=== PATIENT | male | born 1960 | race Caucasian/White ===

== ENCOUNTER 2017-06-20 09:04 | Inpatient (IN) | payer OTHER ==
[~2017-06-20] VITALS: Ht 172.7 cm; Wt 126.1 kg
[~2017-06-20 09:04] MED LIST: ALBUAER19 INH; AMIO200T4 PO; ASPI-435 PO; CARV12.5 PO; CHOL100027 PO; FLEC100T21 PO; FURO40TA3 PO; GLC/500 PO; LISI-794 PO; LPT/40 PO; MOME200A INH; MTR800 PO; POTA20TA16 PO; RRALBUT083 INH; SPIR25TA89 PO; VARD20TA PO
[2017-06-20 11:07] VITALS: BP 174/79; PULSE 92; TEMP 36.9; Ht 172.7 cm; Wt 126.1 kg
[2017-06-20 11:14] VITALS: O2SAT 98
[2017-06-20] MEDS ORDERED: ACETAMINOPHEN 325 MG TAB PO PRN (11:15)
[2017-06-20] MEDS ORDERED: ALUMINUM/MAGNESIUM/SIMETH (MAALOX MAX) 30 ML UDC PO PRN (11:15)
[2017-06-20] MEDS ORDERED: POLYETHYLENE (MIRALAX) 17 GM PACK PO PRN (11:15)
[2017-06-20] MEDS ORDERED: NURSING VERBAL MED ORDER ONE (11:15)
[2017-06-20] MEDS ORDERED: ZOLPIDEM TARTRATE 5 MG TAB PO PRN ×2 (11:15)
[2017-06-20] MEDS ORDERED: MAGNESIUM HYDROXIDE SUSP 30 ML UDC PO PRN (11:15)
[2017-06-20] MEDS ORDERED: ONDANSETRON INJ 2 MG/ML 2 ML VIAL IV PRN (11:15)
[2017-06-20] MEDS ORDERED: SOTALOL HCL 80 MG TAB PO ONE (11:45)
[2017-06-20] MEDS ORDERED: ALBUTEROL HFA 8 GM INHALER INH PRN (11:45)
[2017-06-20 12:03] VITALS: BP 122/68; PULSE 64; TEMP 36.7; O2SAT 98
[2017-06-20 14:56] LABS: INR 1.1 (0.9-1.1); PROTHROMBIN TIME (PATIENT) 11.6 SECONDS (9.0-12.0)
[2017-06-20 15:13] LABS: BLOOD UREA NITROGEN 12 mg/dl (7-18); BUN/CREATININE RATIO 13.4 (10-20); CARBON DIOXIDE 28 mmol/L (21-32); CHLORIDE 101 mmol/L (98-107); CREATININE 0.92 mg/dl (0.60-1.40); GLUCOSE 170 mg/dl (70-99); SODIUM 138 mmol/L (136-145)
[2017-06-20 15:50] VITALS: BP 129/82; PULSE 67; TEMP 37; O2SAT 98
[2017-06-20] MEDS: METFORMIN HCL 500 MG TAB PO SCH (16:52)
--- NOTE | 2017-06-20 17:37 | HISTORY & PHYSICAL EXAMINATION ---
DATE OF ADMISSION: 06/20/2017 REASON FOR ADMISSION: Palpitations. HISTORY OF PRESENT ILLNESS: This is a 57-year-old gentleman who I recently saw in my office last week. He has a past medical history for paroxysmal atrial fibrillation; nonischemic cardiomyopathy, ejection fraction 32%, most recently in the spring was 47%; history of paroxysmal ventricular tachycardia status post 2 attempted VT ablations in [place], as per the patient, they were unsuccessful and he remains on flecainide; hypertension; hyperlipidemia; chronic systolic heart failure, [place] Heart Association class 2. I recently saw him in my office to reestablish electrophysiology care, on his link interrogation that day, he was found to have a lot of atrial fibrillation and I was suggested that maybe he should stop the flecainide and we should try sotalol, so he comes in today for sotalol initiation. PAST MEDICAL HISTORY: In addition to the cardiac history as listed above he has restless leg syndrome; obstructive sleep apnea, on CPAP; severe COPD; vitamin D deficiency; morbid obesity; GERD; hemorrhoids; osteoarthritis; history of alcohol use; and anxiety. PAST SURGICAL HISTORY: Colonoscopy, cardiac catheterization, VT ablation x2 in [place], incision of anal sphincter, arthroscopy of the left ACL and repair, T&A when he was a child, repair of an acute shoulder dislocation. ALLERGIES: No known drug allergies. FAMILY HISTORY: Positive for his father having diabetes and mother having diabetes as well as hypertension and heart problems. SOCIAL HISTORY: He never smoked. He does use alcohol, can be up to 20 beers on the weekend, right now it is 4. He is and works in the [employer]. CURRENT MEDICATIONS: Lisinopril; Aldactone; Lasix; aspirin; Lipitor; metformin; flecainide, which has been stopped now for 3 days; carvedilol; albuterol; and Dulera as needed. REVIEW OF SYSTEMS: Positive for palpitations and diarrhea. Otherwise, all other 10-point review of systems reviewed and are essentially negative at this time. PHYSICAL EXAMINATION: VITAL SIGNS: Blood pressure 130/80, heart rate 70, respirations 12. GENERAL: He is awake, alert and oriented x3, in no acute distress, sitting up in the bed comfortably. HEENT: Normocephalic, atraumatic. Extraocular motion intact. Sclerae nonicteric. Mucous membranes moist. NECK: Supple and thick. CARDIOVASCULAR: Normal S1, S2, regular rate and rhythm. No murmur appreciated. No palpable heave or thrill. Positive PVCs are noted on telemetry. Pulses are intact. No lower extremity edema. PULMONARY: Clear to auscultation bilaterally. No wheezes, rales or rhonchi. ABDOMEN: Soft. NEUROLOGIC: Grossly intact. SKIN: Grossly intact. PERTINENT TESTING: Cardiac catheterization in 2012, he had normal coronaries. The RCA was dominant and his ejection fraction at that time was 30%. A nuclear stress test in May 2016 did not show any ischemia. His ejection fraction at that time was 48%. Echocardiogram in 2013 showed mild mitral regurgitation and tricuspid regurgitation with mild chamber dilatation and sclerotic aortic valve and mitral valve, but no significant regurg or stenosis. EKGs on 05/20/2017, sinus rhythm at 62 beats per minute, PVCs; on 12/31/2015, sinus rhythm, 62 beats per minute; on 03/30/2015, sinus palma at 57 beats per minute, PVCs; on September 2012, sinus rhythm, 72 beats per minute. PERTINENT TESTING: Hemoglobin A1c in March 2017 was 7. Thyroid panel in March 2017; TSH 1.79, free T4 1.17. Lipid panel in March 2017; he was not truly fasting, triglycerides 338, HDL 38, LDL 27, total cholesterol 133. BMP in March 2017; sodium 139, potassium 4.8, chloride 99, carbon dioxide 24, BUN 16, creatinine 0.6, glucose 168, calcium 9.3. CBC: WBC 6.53, hemoglobin 13, hematocrit 38, platelets 191. IMPRESSION: 1. Paroxysmal atrial fibrillation with a CHADS-VASc score of 4 for hypertension, nonischemic cardiomyopathy, heart failure, and diabetes. 2. Nonischemic cardiomyopathy, ejection fraction 32%; but most recently in spring was 47% by nuclear. 3. Paroxysmal ventricular tachycardia status post 2 attempted VT ablations in [place], as per patient they were unsuccessful and he has been on flecainide. 4. Chronic systolic heart failure, [place] Heart Association class 2. 5. Hypertension. 6. Hyperlipidemia. 7. Severe chronic obstructive pulmonary disease. 8. Obstructive sleep apnea, on CPAP. 9. Diabetes. PLAN: Recommend starting sotalol 80 mg twice a day and we will probably have to titrate it up if we can; hopefully tomorrow, we can do at least 120, goal is probably 160. Continue to monitor on telemetry. Daily EKGs. Continue his Xarelto. Stop his aspirin and carvedilol for now. Continue his other home medications. Monitor on telemetry. TITI
[2017-06-20 19:54] VITALS: BP 122/85; PULSE 73; TEMP 36.8; O2SAT 98
[2017-06-20] MEDS: SOTALOL HCL 80 MG TAB PO SCH (20:43)
[2017-06-20] MEDS: ATORVASTATIN 20 MG TAB PO SCH (20:43)
[2017-06-20 23:37] VITALS: BP 94/62; PULSE 74; TEMP 36.7; O2SAT 96
[2017-06-21 07:24] VITALS: BP 142/86; PULSE 60; TEMP 36.8; O2SAT 97
[2017-06-21] MEDS: SOTALOL HCL 80 MG TAB PO SCH ×2 (07:45→21:32)
[2017-06-21] MEDS: LISINOPRIL 40 MG TAB PO SCH (07:45)
[2017-06-21] MEDS: METFORMIN HCL 500 MG TAB PO SCH ×2 (07:45→17:01)
[2017-06-21] MEDS: CHOLECALCIFEROL 1000 INTER.UNIT TAB PO SCH (07:46)
[2017-06-21] MEDS: FUROSEMIDE 40 MG TAB PO SCH (07:46)
[2017-06-21] MEDS: SPIRONOLACTONE 25 MG TAB PO SCH (07:46)
[2017-06-21 08:02] LABS: BUN/CREATININE RATIO 14.4 (10-20); CALCIUM 9.1 mg/dl (8.5-10.1); CREATININE 0.87 mg/dl (0.60-1.40); POTASSIUM 4.9 mmol/L (3.5-5.1)
[2017-06-21] MEDS ORDERED: SOTALOL HCL 80 MG TAB PO ONE (09:00)
[2017-06-21 10:55] VITALS: BP 130/85; PULSE 63; TEMP 36.7; O2SAT 96
--- NOTE | 2017-06-21 13:28 | Cardiology Follow-Up ---
Subjective Subjective Date of Service: Jun 21, 2017. Pt evaluation today including: conversation w/ patient, physical exam, lab review, review of studies Pain: none Additional Details: tolerating sotalol Review of Systems Constitutional: No weakness, No fatigue Respiratory: No shortness of breath Cardiac: No chest pain, No edema, No palpitations Abdomen: No nausea, No diarrhea Endo: No fatigue Objective Vital Signs Last Vital Signs Documentation Date Time Temp Pulse Resp B/P (MAP) Pulse Ox O2 Delivery O2 Flow Rate FiO2 06/21/17 12:00 Room Air 06/21/17 10:55 36.7 63 19 130/85 (100) 96 Physical Exam: General Appearance: WD/WN, no apparent distress Eyes: bilateral eyes PERRL, bilateral eyes EOMI Neck: supple, no JVD Respiratory/Chest: lungs clear, normal breath sounds Cardiovascular: regular rate, rhythm, no edema, no JVD, no murmur Abdomen: soft Extremities: no pedal edema Neurologic/Psychiatric: alert, oriented x 3 Skin: warm/dry, no rash Assessment and Plan Impression: 1. pAF started on sotalol; got 2 doses of 80mg; 160mg today; on xarelto 2. pVT h/o 2 VT ablations unsuccessful 3. NICM EF now 46% 4. Chronic systolic HF, NYHA class III 5. [place] on CPAP Plan -Continue sotalol will try to give 160mg BID today -Daily ECGs -Continue to monitor on telemetry -Continue Xarelto Discharge planning: home Medications: Medications Administered Medications (Trade) Dose Ordered Sig/Regine Route Start Time Stop Time Status Last Admin Dose Admin Sotalol HCl (Betapace Tab) 80 mg BID PO 06/20/17 21:00 06/21/17 08:12 DC 06/21/17 07:45 80 MG Sotalol HCl (Betapace Tab) 80 mg ONE ONCE PO 06/20/17 11:45 06/20/17 11:46 DC 06/20/17 12:28 80 MG Atorvastatin Calcium (Lipitor Tab) 20 mg HS PO 06/20/17 21:00 07/20/17 20:59 06/20/17 20:43 20 MG Cholecalciferol (Vitamin D Tab) 1,000 inter.unit QAM PO 06/21/17 09:00 07/21/17 08:59 06/21/17 07:46 1,000 INTER.UNIT Furosemide (Lasix Tab) 40 mg QAM PO 06/21/17 09:00 07/21/17 08:59 06/21/17 07:46 40 MG Lisinopril (Zestril Tab) 40 mg QAM PO 06/21/17 09:00 07/21/17 08:59 06/21/17 07:45 40 MG Metformin HCl (Glucophage Tab) 500 mg BIDM PO 06/20/17 16:45 07/20/17 16:44 06/21/17 07:45 500 MG Spironolactone (Aldactone Tab) 25 mg QAM PO 06/21/17 09:00 07/21/17 08:59 06/21/17 07:46 25 MG Sotalol HCl (Betapace Tab) 80 mg ONE ONCE PO 06/21/17 09:00 06/21/17 09:01 DC 06/21/17 09:01 80 MG Lab Results: Telemetry: SR with PVCs; overnight 7 beat run of NSVT EC06/20/2107: SR QTc 415ms 06/21/2017: SR QTc 418ms Last 24 Hours Test 06/20/17 14:26 06/20/17 16:10 06/20/17 20:24 06/21/17 06:51 Prothrombin Time 11.6 SECONDS Prothromb Time International Ratio 1.1 Potassium Level 4.7 mmol/L Bedside Glucose 100 mg/dl 141 mg/dl 168 mg/dl Test 06/21/17 07:05 Sodium Level 138 mmol/L Potassium Level 4.9 mmol/L Chloride Level 102 mmol/L Carbon Dioxide Level 29 mmol/L Anion Gap 7.0 mmol/L Blood Urea Nitrogen 13 mg/dl Creatinine 0.87 mg/dl Est Creatinine Clear Calc Drug Dose 123.0 ml/min Estimated GFR () 111.8 Estimated GFR (Non- 96.5 BUN/Creatinine Ratio 14.4 Random Glucose 155 mg/dl Calcium Level 9.1 mg/dl
[2017-06-21 15:58] VITALS: BP 119/78; PULSE 54; TEMP 37.3; O2SAT 96
[2017-06-21] MEDS: RIVAROXABAN 20 MG TAB PO SCH (17:03)
[2017-06-21 19:59] VITALS: BP 109/67; PULSE 60; TEMP 36.9; O2SAT 95
[2017-06-21] MEDS: ATORVASTATIN 20 MG TAB PO SCH (21:31)
[2017-06-22] VITALS (8 sets, daily range): BP systolic 96–128; BP diastolic 54–81; PULSE 51–80; TEMP 36.4–37.1; O2SAT 52–98
[2017-06-22] MEDS: METFORMIN HCL 500 MG TAB PO SCH ×2 (08:20→17:26)
[2017-06-22] MEDS: LISINOPRIL 40 MG TAB PO SCH (08:21)
[2017-06-22] MEDS: SOTALOL HCL 80 MG TAB PO SCH ×2 (08:21→21:20)
[2017-06-22] MEDS: SPIRONOLACTONE 25 MG TAB PO SCH (08:21)
[2017-06-22] MEDS: CHOLECALCIFEROL 1000 INTER.UNIT TAB PO SCH (08:21)
[2017-06-22] MEDS: FUROSEMIDE 40 MG TAB PO SCH (08:21)
[2017-06-22] MEDS: RIVAROXABAN 20 MG TAB PO SCH (08:23)
--- NOTE | 2017-06-22 15:26 | Cardiology Follow-Up ---
Subjective Subjective Date of Service: Jun 22, 2017. Pt evaluation today including: conversation w/ patient, physical exam, chart review, review of studies, review of inpatient medication list Pain: none Additional Details: tolerating sotalol-got his 5th dose this am but this was his 3rd dose at the higher dose (160mg) Review of Systems Constitutional: No weakness, No fatigue Respiratory: No shortness of breath, No dyspnea on exertion Cardiac: No chest pain, No edema, No palpitations Abdomen: No nausea, No diarrhea Endo: No fatigue Objective Vital Signs Last Vital Signs Documentation Date Time Temp Pulse Resp B/P (MAP) Pulse Ox O2 Delivery O2 Flow Rate FiO2 06/22/17 12:00 Room Air 06/22/17 11:20 36.4 51 20 117/77 (90) 95 Physical Exam: General Appearance: WD/WN, no apparent distress Eyes: bilateral eyes PERRL, bilateral eyes EOMI Neck: supple, no JVD Respiratory/Chest: lungs clear, normal breath sounds Cardiovascular: regular rate, rhythm, no edema, no JVD, no murmur Abdomen: soft Extremities: no pedal edema Neurologic/Psychiatric: alert, oriented x 3 Skin: warm/dry, no rash Assessment and Plan Impression: 1. pAF started on sotalol; got 2 doses of 80mg; and 4 doses at 160mg; on xarelto (but going to change to Eliquis) 2. pVT h/o 2 VT ablations unsuccessful 3. NICM EF now 46% 4. Chronic systolic HF, NYHA class III 5. [place] on CPAP Plan -Continue sotalol at higher dose of 160mg BID -Daily ECGs -Continue to monitor on telemetry -Since pt was having difficulty with affording Xarelto but Eliquis maybe more affordable so we will start eliquis 5mg BID tonight -Anticipate discharge home tomorrow Discharge planning: home Medications: Medications Administered Medications (Trade) Dose Ordered Sig/Regine Route Start Time Stop Time Status Last Admin Dose Admin Sotalol HCl (Betapace Tab) 80 mg BID PO 06/20/17 21:00 06/21/17 08:12 DC 06/21/17 07:45 80 MG Sotalol HCl (Betapace Tab) 80 mg ONE ONCE PO 06/20/17 11:45 06/20/17 11:46 DC 06/20/17 12:28 80 MG Atorvastatin Calcium (Lipitor Tab) 20 mg HS PO 06/20/17 21:00 07/20/17 20:59 06/21/17 21:31 20 MG Cholecalciferol (Vitamin D Tab) 1,000 inter.unit QAM PO 06/21/17 09:00 07/21/17 08:59 06/22/17 08:21 1,000 INTER.UNIT Furosemide (Lasix Tab) 40 mg QAM PO 06/21/17 09:00 07/21/17 08:59 06/22/17 08:21 40 MG Lisinopril (Zestril Tab) 40 mg QAM PO 06/21/17 09:00 07/21/17 08:59 06/22/17 08:21 40 MG Metformin HCl (Glucophage Tab) 500 mg BIDM PO 06/20/17 16:45 07/20/17 16:44 06/22/17 08:20 500 MG Spironolactone (Aldactone Tab) 25 mg QAM PO 06/21/17 09:00 07/21/17 08:59 06/22/17 08:21 25 MG Rivaroxaban (Xarelto Tab) 20 mg DAILY PO 06/21/17 17:00 06/22/17 08:32 DC 06/21/17 17:03 20 MG Sotalol HCl (Betapace Tab) 160 mg BID PO 06/21/17 21:00 07/20/17 20:59 06/22/17 08:21 160 MG Sotalol HCl (Betapace Tab) 80 mg ONE ONCE PO 06/21/17 09:00 06/21/17 09:01 DC 06/21/17 09:01 80 MG Lab Results: Telemetry: SR some rare PVCs; one run NSVT overnight ECG: Today: SR QTc: 416ms 06/20/2017: SR QTc 415ms 06/21/2017: SR QTc 418ms Last 24 Hours Test 06/22/17 06:39 06/22/17 11:43 Bedside Glucose 150 mg/dl 188 mg/dl
[2017-06-22] MEDS: ATORVASTATIN 20 MG TAB PO SCH (21:20)
[2017-06-22] MEDS: APIXABAN 2.5 MG TAB PO SCH (21:21)
[2017-06-23 03:56] VITALS: BP 92/58; PULSE 52; TEMP 36.5; O2SAT 99
[2017-06-23 08:00] VITALS: BP 117/76; PULSE 64; TEMP 37.6; O2SAT 96
[2017-06-23] MEDS: SPIRONOLACTONE 25 MG TAB PO SCH (08:28)
[2017-06-23] MEDS: CHOLECALCIFEROL 1000 INTER.UNIT TAB PO SCH (08:29)
[2017-06-23] MEDS: FUROSEMIDE 40 MG TAB PO SCH (08:29)
[2017-06-23] MEDS: LISINOPRIL 40 MG TAB PO SCH (08:29)
[2017-06-23] MEDS: SOTALOL HCL 80 MG TAB PO SCH (08:29)
[2017-06-23] MEDS: METFORMIN HCL 500 MG TAB PO SCH (08:30)
[2017-06-23] MEDS: APIXABAN 2.5 MG TAB PO SCH (08:30)
--- NOTE | 2017-06-23 08:42 | Cardiology Follow-Up ---
Subjective Subjective Date of Service: Jun 23, 2017. Pt evaluation today including: conversation w/ patient, physical exam, chart review, lab review, review of studies, review of inpatient medication list Additional Details: Pt seen and examined, states that he feels well. No complaints. Denies cp, sob, palpitations, lightheadedness or dizziness. Tele reviewed: sinus rhythm without arrhythmia EKG: sinus with a QTc of 442 ms Review of Systems Constitutional: No weakness, No fatigue Respiratory: No see HPI, No cough, No sputum, No wheezing, No shortness of breath, No dyspnea on exertion, No dyspnea at rest, No hemoptysis, No problem reported Cardiac: No see HPI, No chest pain, No orthopnea, No PND, No edema, No claudication, No palpitations, No problem reported Abdomen: No nausea, No diarrhea Endo: No fatigue Objective Vital Signs Last Vital Signs Documentation Date Time Temp Pulse Resp B/P (MAP) Pulse Ox O2 Delivery O2 Flow Rate FiO2 06/23/17 08:00 37.6 64 18 117/76 (90) 96 Room Air Physical Exam: General Appearance: WD/WN, no apparent distress Eyes: bilateral eyes normal inspection, bilateral eyes PERRL, bilateral eyes EOMI ENT: normal ENT inspection, hearing grossly normal, pharynx normal Neck: supple, no adenopathy, thyroid normal, no JVD, no carotid bruits, trachea midline Respiratory/Chest: chest non-tender, lungs clear, normal breath sounds, no respiratory distress, no accessory muscle use Cardiovascular: regular rate, rhythm, no edema, no JVD, no murmur Abdomen: normal bowel sounds, non tender, soft, no organomegaly, no pulsatile mass Extremities: normal range of motion, non-tender, normal inspection, no pedal edema, no calf tenderness Neurologic/Psychiatric: 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 PAF has now successfully completed sotalol load no arrhythmias or significant ectopy QTc stable will d/c to home with Eliquis and Sotalol, my office to call in scripts f/u with Dr. Montejo as outpatient. Discharge planning: home
--- NOTE | 2017-06-23 08:46 | Discharge Instructions ---
Discharge Instructions Date of Service Jun 23, 2017. Admission Reason for Admission: Sotalol Load Discharge Discharge Diagnosis / Problem: Paroxysmal atrial fibrillation Discharge Goals Goal(s): Improve function Activity Recommendations Activity Limitations: resume your previous activity Lifting Limitations: none Exercise/Sports Limitations: none May Resume Sexual Activity: when tolerated Shower/Bathe: no limitations Driving or Machine Use: no limitations . Current Hospital Diet Patient's current hospital diet: AHA Diet (Heart Healthy) Discharge Diet Recommended Diet: AHA Diet (Heart Healthy) Pending Studies Studies pending at discharge: no Medical Emergencies . Who to Call and When: Medical Emergencies: If at any time you feel your situation is an emergency, please call 911 immediately. . Non-Emergent Contact Non-Emergency issues call your: Primary Care Provider . . "Provider Documentation" section prepared by Brady Kendrick. . VTE Core Measure Inpt VTE Proph given/why not?: Other Anticoagulation
[2017-06-23] MEDS ORDERED: APIX1TAB3 PO (08:47)
[2017-06-23] MEDS ORDERED: BTP80 PO (08:47)
[2017-06-23 09:17] VITALS: BP 117/76; PULSE 64; TEMP 37.6; O2SAT 96
--- NOTE | 2017-06-27 09:31 | DISCHARGE SUMMARY ---
HOSPITAL COURSE: The patient presented to [facility] on 06/20/2017 for a planned elective sotalol load under the supervision of Dr. Han. The patient underwent sotalol loading. He received a total of 7 doses of sotalol with no significant arrhythmias or ventricular ectopy on telemetry monitoring and his QTC remained stable on EKG. He tolerated the load well and on the , he was discharged to home. PROCEDURES: None. COMPLICATIONS: None. DISCHARGE DIAGNOSES. 1. Paroxysmal atrial fibrillation, status post sotalol loading. 2. Obstructive sleep apnea, on nocturnal CPAP. 3. Chronic obstructive pulmonary disease. 4. Obesity. 5. Gastroesophageal reflux disease. 6. Anxiety. 7. Restless legs syndrome. CONDITION AT DISCHARGE: Stable. DISCHARGE MEDICATIONS: 1. Sotalol 160 mg b.i.d. 2. Eliquis 5 mg b.i.d. 3. Lasix 40 mg q.a.m. 4. Lisinopril 40 mg q.a.m. 5. Spironolactone 25 mg q.a.m. 6. Atorvastatin 20 mg daily. MEDICAL FOLLOWUP: The patient is to follow up with Dr. Han's schedule as an outpatient.
== END 2017-06-23 09:45 | disposition home or self-care (01) | DRG 309 ==
LOC: C.2T 09:40
PROVIDERS: ADMIT Internal Medicine; ATTEND Internal Medicine
DX: I48.0 Paroxysmal atrial fibrillation (principal); I50.22 Chronic systolic (congestive) heart failure; Z68.41 Body mass index [BMI] 40.0-44.9, adult; I47.2 Ventricular tachycardia; I42.9 Cardiomyopathy, unspecified; G47.33 Obstructive sleep apnea (adult) (pediatric); J44.9 Chronic obstructive pulmonary disease, unspecified; K21.9 Gastro-esophageal reflux disease without esophagitis; I11.0 Hypertensive heart disease with heart failure; F41.9 Anxiety disorder, unspecified; G25.81 Restless legs syndrome; E78.5 Hyperlipidemia, unspecified; E11.9 Type 2 diabetes mellitus without complications; E66.01 Morbid (severe) obesity due to excess calories; Z51.81 Encounter for therapeutic drug level monitoring; Z79.899 Other long term (current) drug therapy; Z79.84 Long term (current) use of oral hypoglycemic drugs; Z79.82 Long term (current) use of aspirin; Z72.89 Other problems related to lifestyle; Z82.49 Family history of ischemic heart disease and other diseases of the circulatory system; Z83.3 Family history of diabetes mellitus

== ENCOUNTER 2017-06-27 23:28 | Inpatient (IN) | payer OTHER ==
[~2017-06-27] VITALS: Ht 172.7 cm; Wt 127.9 kg
[~2017-06-27 23:28] MED LIST changes: -AMIO200T4 PO; +APIX1TAB3 PO; +BTP80 PO; -CARV12.5 PO; -FLEC100T21 PO
[2017-06-27] MEDS ORDERED: METOPROLOL TARTRATE 1 MG/ML VIAL IV STA ×2 (23:52)
--- NOTE | 2017-06-27 23:59 | EMERGENCY ROOM VISIT NOTE ---
History Report prepared by Venkatesh: Jose Barcenas Under the Supervision of: Dr. Becky Quijano M.D. First contact with patient: 23:37 Chief Complaint: TACHYCARDIA Stated Complaint: HEART RUNNING FAST History of Present Illness The patient is a 57 year old male with a history of atrial fibrillation with RVR who presents to the Emergency Room with complaints of episodes of tachycardia that started a few days ago. He says that he was just here recently for 4 days with palpitations and episodic v-tach. He says that he was taken off of his Flecainide pill and was put on Sotalol. The patient states that he felt well when he was discharged, but about 2 days ago, he started feeling unwell and says that he could feel his heart racing. He notes that for the past 2 nights, he would lay in bed and would get a lot of pressure in his chest, and after standing up for a while, he would start to feel better, but once he laid down again, his pressure would come back. The patient states that he has a history of 2 ablations for his v-tach. He says that he follows-up with cardiology in [facility]. The patient states that he is on a blood thinner (Xarelto). He notes no heart attack history. The patient says that he does not smoke. Source of History: patient Onset: A few days ago Position: other (heart) Symptom Intensity: history of v-tach and afib with rvr Quality: other (palpitations) Modifying Factors (Worsening): other (laying down) Modifying Factors (Relieving): other (standing up) Associated Symptoms: + chest pain (pressure) Note: Associated symptoms: Heart racing. Not feeling well. Review of Systems See HPI for pertinent positives & negatives. A total of 10 systems reviewed and were otherwise negative. Past Medical & Surgical Medical Problems: (1) Afib (2) COPD (chronic obstructive pulmonary disease) (3) GERD (gastroesophageal reflux disease) (4) Sleep apnea (5) sotalol load Surgical Problems: (1) History of cardiac catheterization Family History Diabetes mellitus Heart disease Hypertension Social History Smoking Status: Never Smoker Alcohol Use: occasionally Marital Status: single Occupation Status: disabled Current/Historical Medications Scheduled Apixaban (Eliquis), 5 MG PO BID Aspirin (Aspirin 81), 1 TAB PO QAM Atorvastatin (Lipitor), 40 MG PO QAM Cholecalciferol (Vitamin D 1000 Unit), 1,000 INTER.UNIT PO QAM Furosemide (Lasix), 40 MG PO QAM Lisinopril (Zestril), 40 MG PO QAM Metformin Hcl (Glucophage), 500 MG PO BID Mometasone Furoate-Formoterol (Dulera 200/5 Mcg), 1 AER INH BID Potassium Ext Rel (Klor-Con), 20 MEQ PO QAM Sotalol HCl (Sotalol HCl), 160 MG PO BID Spironolactone (Aldactone), 25 MG PO QAM Vardenafil Hcl (Levitra), 20 MG PO DIRECTED Scheduled PRN Albuterol Hfa (Ventolin Hfa), 2 PUFFS INH Q6H PRN for SOB/Wheezing Albuterol Sulf (Albuterol Sulfate), 1 DOSE INH Q4H PRN for SOB/Wheezing Ibuprofen (Ibuprofen), 800 MG PO DAILY PRN for Pain Allergies Coded Allergies: Shellfish (Verified Allergy, Severe, HIVES,SOB, 06/28/17) Physical Exam Vital Signs Date Time Temp Pulse Resp B/P (MAP) Pulse Ox O2 Delivery O2 Flow Rate FiO2 06/28/17 01:11 103 16 98 Room Air 06/28/17 01:01 100/79 06/28/17 00:56 97 16 97 Room Air 06/28/17 00:41 115 16 98 Room Air 06/28/17 00:31 116 06/28/17 00:26 95 18 98 Room Air 06/28/17 00:25 122/93 06/28/17 00:15 85 06/28/17 00:11 93 23 99 06/28/17 00:06 117 134/88 98 Room Air 06/28/17 00:06 116 134/88 06/28/17 00:04 62 06/28/17 00:04 122 06/27/17 23:58 116 98 Room Air 06/27/17 23:51 127 06/27/17 23:47 99 Room Air 06/27/17 23:46 121 06/27/17 23:44 115 06/27/17 23:44 123 118/87 98 Room Air 06/27/17 23:30 36.6 109 24 144/90 97 Room Air Physical Exam Vital signs reviewed. General: Chronically ill-appearing, obese, 57 year old male, in no significant distress. HEENT: No scleral icterus, PERRLA, neck supple. Atraumatic. Cardiovascular: Rapid and irregular, no extra sounds. Pulmonary: Clear to auscultation bilaterally, normal work of breathing. Abdomen: Soft, nontender, nondistended, positive bowel sounds. Musculoskeletal: Atraumatic, no peripheral edema. Neurologic: Patient awake alert and oriented x 3, full strength in all 4 extremities. Cranial nerves 2 through 12 grossly intact. Skin: Warm, dry, no rash Medical Decision & Procedures ER Provider Diagnostic Interpretation: X-ray results as stated below per interpretation by me: CHEST ONE-VIEW PORTABLE: Cardiomegaly, loop recorder left anterior chest. No focal lung consolidation, no failure. Laboratory Results 06/27/17 23:55 Red Blood Count 4.06, Mean Corpuscular Volume 91.4, Mean Corpuscular Hemoglobin 31.5, Mean Corpuscular Hemoglobin Concent 34.5, Mean Platelet Volume 9.5, Neutrophils (%) (Auto) 50.8, Lymphocytes (%) (Auto) 36.6, Monocytes (%) (Auto) 8.7, Eosinophils (%) (Auto) 3.5, Basophils (%) (Auto) 0.1, Neutrophils # (Auto) 3.44, Lymphocytes # (Auto) 2.48, Monocytes # (Auto) 0.59, Eosinophils # (Auto) 0.24, Basophils # (Auto) 0.01 06/27/17 23:55 Test 06/27/17 23:55 06/28/17 00:01 White Blood Count 6.78 K/uL (4.8-10.8) Red Blood Count 4.06 M/uL (4.7-6.1) Hemoglobin 12.8 g/dL (14.0-18.0) Hematocrit 37.1 % (42-52) Mean Corpuscular Volume 91.4 fL (80-100) Mean Corpuscular Hemoglobin 31.5 pg (25-34) Mean Corpuscular Hemoglobin Concent 34.5 g/dl (32-36) Platelet Count 204 K/uL (130-400) Mean Platelet Volume 9.5 fL (7.4-10.4) Neutrophils (%) (Auto) 50.8 % Lymphocytes (%) (Auto) 36.6 % Monocytes (%) (Auto) 8.7 % Eosinophils (%) (Auto) 3.5 % Basophils (%) (Auto) 0.1 % Neutrophils # (Auto) 3.44 K/uL (1.4-6.5) Lymphocytes # (Auto) 2.48 K/uL (1.2-3.4) Monocytes # (Auto) 0.59 K/uL (0.11-0.59) Eosinophils # (Auto) 0.24 K/uL (0-0.5) Basophils # (Auto) 0.01 K/uL (0-0.2) RDW Standard Deviation 43.7 fL (36.4-46.3) RDW Coefficient of Variation 13.3 % (11.5-14.5) Immature Granulocyte % (Auto) 0.3 % Immature Granulocyte # (Auto) 0.02 K/uL (0.00-0.02) Prothrombin Time 13.4 SECONDS (9.0-12.0) Prothromb Time International Ratio 1.2 (0.9-1.1) Activated Partial Thromboplast Time 31.2 SECONDS (21.0-31.0) Partial Thromboplastin Ratio 1.2 Anion Gap 9.0 mmol/L (3-11) Est Creatinine Clear Calc Drug Dose 104.2 ml/min Estimated GFR () 92.6 Estimated GFR (Non- 79.9 BUN/Creatinine Ratio 22.1 (10-20) Calcium Level 8.8 mg/dl (8.5-10.1) Magnesium Level 1.9 mg/dl (1.8-2.4) Total Bilirubin 0.3 mg/dl (0.2-1) Direct Bilirubin < 0.1 mg/dl (0-0.2) Aspartate Amino Transf (AST/SGOT) 18 U/L (15-37) Alanine Aminotransferase (ALT/SGPT) 44 U/L (12-78) Alkaline Phosphatase 82 U/L (45-117) Total Creatine Kinase 132 U/L (39-308) Creatine Kinase MB 0.7 ng/ml (0.5-3.6) Creatine Kinase MB Ratio 0.5 (0-3.0) Total Protein 7.1 gm/dl (6.4-8.2) Albumin 3.5 gm/dl (3.4-5.0) Bedside Troponin I < 0.030 ng/ml (0-0.045) Laboratory results per my review. Medications Administered Medications (Trade) Dose Ordered Sig/Regine Route Start Time Stop Time Status Last Admin Dose Admin Metoprolol Tartrate (Lopressor Iv) 5 mg STK-MED ONCE .ROUTE 06/28/17 00:00 06/28/17 00:02 DC 06/28/17 00:06 5 MG Amiodarone HCL/ Dextrose 100 ml @ 600 mls/hr ONE STAT IV 06/28/17 01:02 06/28/17 01:11 DC 06/28/17 01:17 600 MLS/HR Amiodarone HCL/ Dextrose 200 ml @ 33.3 mls/hr Q6H1M IV 06/28/17 01:15 06/28/17 07:15 06/28/17 01:17 33.3 MLS/HR ECG Indication: palpitations Rate (beats per minute): 128 Rhythm: atrial fibrillation Findings: RBBB, no acute ischemic change, other (repolarization abnormality, PVC or aberrantly conducted complex) ED Course 2350: Past medical records reviewed. The patient was evaluated in room B12B. A complete history and physical examination was performed. 0053: I discussed the patient with Dr. Thee Fernandes cardiology. 0101: I reviewed the patient's case with Dr. Sonido Fernandes section leader. He will evaluate the patient for further management. 0102: Ordered Amiodarone HCl/Dextrose 100 ml @ 600 mls/hr IV. 0115: Upon reevaluation, the patient is resting comfortably. I discussed laboratory and radiographic results with him. He verbalized agreement of the treatment plan. The patient will be evaluated for further management and care. Ordered Amiodarone HCl/Dextrose 200 ml @ 33.3 mls/hr IV. Medical Decision Differential diagnosis: Etiologies such as premature contractions, electrolyte abnormality, cardiac dysrhythmia, thyroid dysfunction, pulmonary embolism, infection, gastrointestinal, as well as others were entertained. This patient was evaluated and appeared to be in no significant distress. He is found to be in a rapid atrial fibrillation with frequent ectopy. The patient 's rhythm is difficult to interpret however I feel he is likely having nonsustained runs of V. tach. He was given 5 mg of IV metoprolol which did control the atrial fibrillation for short period of time. Laboratory work is unrevealing. Electrolytes are normal. Chest x-ray is clear. I did discuss the case with Dr. Kingston cardiology who has recommended IV amiodarone. The patient was given 150 mg bolus and a drip. He will be evaluated by the hospitalist service, Dr. Head. Patient was informed of the findings. She will return to the ER for worsening of symptoms or any medical concerns. Medication Reconcilliation Current Medication List: was personally reviewed by me Blood Pressure Screening Patient's blood pressure: Normal blood pressure Consults Time Called: 44 Consulting Physician: Dr. Thee Fernandes cardiology Returned Call: [phone] I discussed the patient with Dr. Thee Fernandes cardiology. Additional Consults: Time Called: 57 Consulted Physician: Dr. Sonido Fernandes section leader Returned Call: [phone] Additional Comments: I reviewed the patient's case with Dr. Sonido Fernandes section leader. He will evaluate the patient for further management. Impression Primary Impression: Rapid atrial fibrillation Additional Impression: Ventricular tachycardia, non-sustained Scribe Attestation The scribe's documentation has been prepared under my direction and personally reviewed by me in its entirety. I confirm that the note above accurately reflects all work, treatment, procedures, and medical decision making performed by me. Departure Information Dispostion Being Evaluated By Hospitalist Referrals No Doctor, Assigned (PCP) Patient Instructions My [facility] Problem Qualifiers
[2017-06-28] VITALS (11 sets, daily range): BP systolic 111–149; BP diastolic 65–103; PULSE 53–120; TEMP 36.4–37; O2SAT 96–99; Ht 172.7 cm; Wt 127.9 kg
[2017-06-28] MEDS ORDERED: METOPROLOL TARTRATE 1 MG/ML VIAL ONE
[2017-06-28 00:15] LABS: BASO % 0.1 %; BASO ABS # 0.01 K/uL (0-0.2); COMPLETE YES; EOS % 3.5 %; HEMATOCRIT 37.1 % (42-52); IG% 0.3 %; LYMPH % 36.6 %; LYMPH ABS # 2.48 K/uL (1.2-3.4); MEAN CELL VOLUME 91.4 fL (80-100); MEAN CORPUSCULAR HEMOGLOBIN 31.5 pg (25-34); MEAN CORPUSCULAR HGB CONC 34.5 g/dl (32-36); MEAN PLATELET VOLUME 9.5 fL (7.4-10.4); MONO % 8.7 %; NEUT % 50.8 %; PLATELET COUNT 204 K/uL (130-400); RED BLOOD COUNT 4.06 M/uL (4.7-6.1); WHITE BLOOD COUNT 6.78 K/uL (4.8-10.8)
[2017-06-28 00:24] LABS: INR 1.2 (0.9-1.1); PARTIAL THROMBOPLASTIN RATIO 1.2; PROTHROMBIN TIME (PATIENT) 13.4 SECONDS (9.0-12.0)
[2017-06-28 00:37] LABS: ALT/SGPT 44 U/L (12-78); AST/SGOT 18 U/L (15-37); BLOOD UREA NITROGEN 23 mg/dl (7-18); BUN/CREATININE RATIO 22.1 (10-20); CALCIUM 8.8 mg/dl (8.5-10.1); CARBON DIOXIDE 25 mmol/L (21-32); CHLORIDE 105 mmol/L (98-107); CREATININE 1.04 mg/dl (0.60-1.40); GLUCOSE 185 mg/dl (70-99); MAGNESIUM 1.9 mg/dl (1.8-2.4); SODIUM 139 mmol/L (136-145)
[2017-06-28] MEDS ORDERED: VNTHFA/IN INH (00:40)
[2017-06-28 00:42] LABS: ALKALINE PHOSPHATASE 82 U/L (45-117); CKMB/CK RATIO 0.5 (0-3.0)
[2017-06-28] MEDS ORDERED: AMIODARONE IV BOLUS / DRIP IV STA ×2 (00:54→01:02)
[2017-06-28] MEDS ORDERED: AMIODARONE / D5W 100 ML IV STA (01:02)
[2017-06-28] MEDS ORDERED: GLUCOSE 10 TABS/TUBE PO PRN (01:15)
[2017-06-28] MEDS ORDERED: GLUCOSE 40% GEL 15 GM TUBE PO PRN (01:15)
[2017-06-28] MEDS ORDERED: GLUCAGON FOR INJ 1 MG VIAL SQ PRN (01:15)
[2017-06-28] MEDS ORDERED: DEXTROSE 50% 50 ML SYR IV PRN (01:15)
[2017-06-28] MEDS ORDERED: AMIODARONE / D5W 200 ML IV SCH ×2 (01:15→07:15)
[2017-06-28] MEDS ORDERED: ALBUTEROL HFA 8 GM INHALER INH PRN (01:15)
[2017-06-28] MEDS ORDERED: ALBUT/IPRATROP 3MG/0.5MG NEB 3 ML VIAL INH PRN (01:15)
--- NOTE | 2017-06-28 02:04 | History and Physical ---
History & Physical Date & Time of Service: Jun 28, 2017 at 01:38 Chief Complaint: Heart Running Fast Primary Care Physician: Lebron Carlos M.D. History of Present Illness Source: patient, family, clinic records, hospital records This is a 57 year old male with a PMH of paroxysmal atrial fibrillation, paroxysmal ventricular tachycardia s/p two failed ablations, COPD, DM2, HLD, nonischemic cardiomyopathy and systolic CHF with EF ~ 45%, SIERRA on CPAP presents to the ED due to palpitations and rapid heart beat. He was at [facility] from 06/20 to 06/23 due to the same thing. At that time, his medications were changed around from Flecainide, which he was on for his arrhythmias, to Sotalol. He was on a Sotalol loading dose and was discharged on 06/23. Stated that he did well over the weekend on 06/24 and 06/25, but on Tuesday 06/26, he started feeling his heart racing again and decided to come in to the hospital for further evaluation on Monday, 06/27. Denies shortness of breath/fevers/chills/nausea/ vomiting/diarrhea. Upon presentation, it was noted that patient was in a ventricular tachycardia. Dr. Kingston was made aware - recommended Amiodarone bolus and drip; which was started in the ED. Past Medical/Surgical History Medical Problems: (1) Afib Status: Chronic (2) COPD (chronic obstructive pulmonary disease) Status: Chronic (3) GERD (gastroesophageal reflux disease) Status: Chronic (4) Sleep apnea Status: Chronic Surgical Problems: (1) History of cardiac catheterization Status: Resolved Family History Diabetes mellitus Heart disease Hypertension Social History Smoking Status: Never Smoker Marital Status: single Occupational Status: disabled Multi-Drug Resistant Organisms History of MDRO: No Allergies Coded Allergies: Shellfish (Verified Allergy, Severe, HIVES,SOB, 06/28/17) Home Medications Scheduled Apixaban (Eliquis), 5 MG PO BID Aspirin (Aspirin 81), 1 TAB PO QAM Atorvastatin (Lipitor), 40 MG PO QAM Cholecalciferol (Vitamin D 1000 Unit), 1,000 INTER.UNIT PO QAM Furosemide (Lasix), 40 MG PO QAM Lisinopril (Zestril), 40 MG PO QAM Metformin Hcl (Glucophage), 500 MG PO BID Mometasone Furoate-Formoterol (Dulera 200/5 Mcg), 1 AER INH BID Potassium Ext Rel (Klor-Con), 20 MEQ PO QAM Sotalol HCl (Sotalol HCl), 160 MG PO BID Spironolactone (Aldactone), 25 MG PO QAM Vardenafil Hcl (Levitra), 20 MG PO DIRECTED Scheduled PRN Albuterol Hfa (Ventolin Hfa), 2 PUFFS INH Q6H PRN for SOB/Wheezing Albuterol Sulf (Albuterol Sulfate), 1 DOSE INH Q4H PRN for SOB/Wheezing Ibuprofen (Ibuprofen), 800 MG PO DAILY PRN for Pain Review of Systems Constitutional: No fever, No chills, No sweats, No weakness, No fatigue ENT: No sore throat Respiratory: No cough, No sputum, No wheezing, No shortness of breath, No dyspnea on exertion, No dyspnea at rest, No hemoptysis Cardiovascular: + palpitations, No chest pain, No orthopnea, No edema Abdomen: No pain, No nausea, No vomiting, No diarrhea, No constipation Musculoskeletal: No joint pain, No muscle pain Genitourinary - Male: No hematuria, No dysuria, No urinary frequency, No urinary urgency Neurologic: No weakness, No numbness/tingling, No vertigo, No balance problems Psychiatric: No depression symptoms, No anxiety, No insomnia Endocrine: No fatigue, No excessive thirst, No excessive urination Hematologic / Lymphatic: No abnormal bleeding/bruising Integumentary: No rash Allergic / Immunologic: No environmental allergies, No seasonal allergies Physical Exam Vital Signs Date Time Temp Pulse Resp B/P (MAP) Pulse Ox O2 Delivery O2 Flow Rate FiO2 06/28/17 01:11 103 16 98 Room Air 06/28/17 01:01 100/79 06/28/17 00:56 97 16 97 Room Air 06/28/17 00:41 115 16 98 Room Air 06/28/17 00:31 116 06/28/17 00:26 95 18 98 Room Air 06/28/17 00:25 122/93 06/28/17 00:15 85 06/28/17 00:11 93 23 99 06/28/17 00:06 117 134/88 98 Room Air 06/28/17 00:06 116 134/88 06/28/17 00:04 62 06/28/17 00:04 122 06/27/17 23:58 116 98 Room Air 06/27/17 23:51 127 06/27/17 23:47 99 Room Air 06/27/17 23:46 121 06/27/17 23:44 115 06/27/17 23:44 123 118/87 98 Room Air 06/27/17 23:30 36.6 109 24 144/90 97 Room Air General Appearance: no apparent distress, + obese Head: normocephalic, atraumatic Eyes: normal inspection ENT: hearing grossly normal Neck: supple Respiratory/Chest: lungs clear, normal breath sounds, no respiratory distress, no accessory muscle use Cardiovascular: no murmur, + tachycardia, + irregularly irregular Abdomen/GI: non tender, soft Extremities/Musculoskelatal: normal inspection, no calf tenderness, normal capillary refill, no pedal edema, normal range of motion 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, no motor/sensory deficits, alert, normal mood/affect, oriented x 3 Skin: normal color Lymphatic: no adenopathy Diagnostics Laboratory Results Results Past 24 Hours Test 06/27/17 23:55 06/28/17 00:01 Range/Units White Blood Count 6.78 4.8-10.8 K/uL Red Blood Count 4.06 4.7-6.1 M/uL Hemoglobin 12.8 14.0-18.0 g/dL Hematocrit 37.1 42-52 % Mean Corpuscular Volume 91.4 80-100 fL Mean Corpuscular Hemoglobin 31.5 25-34 pg Mean Corpuscular Hemoglobin Concent 34.5 32-36 g/dl Platelet Count 204 130-400 K/uL Mean Platelet Volume 9.5 7.4-10.4 fL Neutrophils (%) (Auto) 50.8 % Lymphocytes (%) (Auto) 36.6 % Monocytes (%) (Auto) 8.7 % Eosinophils (%) (Auto) 3.5 % Basophils (%) (Auto) 0.1 % Neutrophils # (Auto) 3.44 1.4-6.5 K/uL Lymphocytes # (Auto) 2.48 1.2-3.4 K/uL Monocytes # (Auto) 0.59 0.11-0.59 K/uL Eosinophils # (Auto) 0.24 0-0.5 K/uL Basophils # (Auto) 0.01 0-0.2 K/uL RDW Standard Deviation 43.7 36.4-46.3 fL RDW Coefficient of Variation 13.3 11.5-14.5 % Immature Granulocyte % (Auto) 0.3 % Immature Granulocyte # (Auto) 0.02 0.00-0.02 K/uL Prothrombin Time 13.4 9.0-12.0 SECONDS Prothromb Time International Ratio 1.2 0.9-1.1 Activated Partial Thromboplast Time 31.2 21.0-31.0 SECONDS Partial Thromboplastin Ratio 1.2 Sodium Level 139 136-145 mmol/L Potassium Level 4.0 3.5-5.1 mmol/L Chloride Level 105 98-107 mmol/L Carbon Dioxide Level 25 21-32 mmol/L Anion Gap 9.0 3-11 mmol/L Blood Urea Nitrogen 23 7-18 mg/dl Creatinine 1.04 0.60-1.40 mg/dl Est Creatinine Clear Calc Drug Dose 104.2 ml/min Estimated GFR () 92.6 Estimated GFR (Non- 79.9 BUN/Creatinine Ratio 22.1 10-20 Random Glucose 185 70-99 mg/dl Calcium Level 8.8 8.5-10.1 mg/dl Magnesium Level 1.9 1.8-2.4 mg/dl Total Bilirubin 0.3 0.2-1 mg/dl Direct Bilirubin < 0.1 0-0.2 mg/dl Aspartate Amino Transf (AST/SGOT) 18 15-37 U/L Alanine Aminotransferase (ALT/SGPT) 44 12-78 U/L Alkaline Phosphatase 82 45-117 U/L Total Creatine Kinase 132 39-308 U/L Creatine Kinase MB 0.7 0.5-3.6 ng/ml Creatine Kinase MB Ratio 0.5 0-3.0 Total Protein 7.1 6.4-8.2 gm/dl Albumin 3.5 3.4-5.0 gm/dl Bedside Troponin I < 0.030 0-0.045 ng/ml EKG Atrial fibrillation with rapid ventricular response Right bundle branch block Septal infarct , age undetermined T wave abnormality, consider inferolateral ischemia Impression Assessment and Plan This is a 57 year old male with a PMH of paroxysmal atrial fibrillation, paroxysmal ventricular tachycardia s/p two failed ablations, COPD, DM2, HLD, nonischemic cardiomyopathy and systolic CHF with EF ~ 45%, SIERRA on CPAP presents to the ED due to palpitations and rapid heart beat Paroxysmal A. Fib Paroxysmal Ventricular Tachycardia patient presents with tachycardia in the 130s-140s was just changed from Flecainide to Sotalol on 06/20 and discharged on 06/23 recommendation by cardiology is to change to Amiodarone bolus/drip for now monitor in tele continue Eliquis 5mg BID - patient was taking Xarelto, switched last week, though unsure if he actually made the switch at home; either way, we will continue Eliquis for now check electrolytes, TSH Nonischemic Cardiomyopathy Systolic CHF with EF around 45% hold Lasix for now (elevated BUN:creat ratio), restart in 1-2 days continue Lisinopril and Aldactone DM2 hold oral agents insulin sliding scale COPD takes Dulera, will use Advair while here Ventolin nebs as needed SIERRA on CPAP HLD continue Lipitor DVT ppx Eliquis FULL CODE VTE Prophylaxis VTE Risk Assessment Done? Y/N: Yes Risk Level: Moderate Given or contraindicated: Other Anticoagulation
--- NOTE | 2017-06-28 06:49 | DIAGNOSTIC IMAGING REPORT ---
CHEST ONE VIEW PORTABLE CLINICAL HISTORY: a fib cardiac arrhythmia COMPARISON STUDY: 06/03/2013 FINDINGS: Mild stable cardiomegaly. Diaphragms smooth. Lungs are clear. IMPRESSION: Mild stable cardiomegaly. Otherwise negative study. The above report was generated using voice recognition software. It may contain grammatical, syntax or spelling errors. Electronically signed by: Vega Aguirre M.D. 06/28/2017 6:47 AM Dictated Date/Time: 06/28/2017 6:47 AM
[2017-06-28 07:00] LABS: HEMATOCRIT 40.2 % (42-52); MEAN CELL VOLUME 91.4 fL (80-100); MEAN CORPUSCULAR HEMOGLOBIN 31.4 pg (25-34); MEAN CORPUSCULAR HGB CONC 34.3 g/dl (32-36); MEAN PLATELET VOLUME 9.6 fL (7.4-10.4); PLATELET COUNT 191 K/uL (130-400); WHITE BLOOD COUNT 7.64 K/uL (4.8-10.8)
[2017-06-28] MEDS: INSULIN ASPART 100 UNITS/ML 3 ML PEN SC SCH ×4 (07:00→20:17)
[2017-06-28 07:41] LABS: BUN/CREATININE RATIO 20.5 (10-20); CALCIUM 8.9 mg/dl (8.5-10.1); CREATININE 0.97 mg/dl (0.60-1.40); MAGNESIUM 1.8 mg/dl (1.8-2.4); POTASSIUM 4.3 mmol/L (3.5-5.1)
[2017-06-28 07:52] LABS: THYROID STIMULATING HORMONE 1.81 uIu/ml (0.300-4.500)
[2017-06-28] MEDS: ATORVASTATIN 40 MG TAB PO SCH (08:17)
[2017-06-28] MEDS: POTASSIUM CHLORIDE 20 MEQ TABCR PO SCH (08:17)
[2017-06-28] MEDS: ASPIRIN 81 MG ECTAB PO SCH (08:18)
[2017-06-28] MEDS: FLUTICASONE/SALMETEROL (ADVAIR) 500/50 INH 14 PUFF INH SCH ×2 (08:19→20:14)
[2017-06-28] MEDS: SPIRONOLACTONE 25 MG TAB PO SCH (08:20)
[2017-06-28] MEDS: APIXABAN 2.5 MG TAB PO SCH ×2 (08:22→20:16)
[2017-06-28] MEDS: LISINOPRIL 40 MG TAB PO SCH (08:23)
[2017-06-28] MEDS: MAGNESIUM SULFATE 1GM / D5W 1 GM in PREMIXED IN D5W 100 ML IV SCH ×4 (09:40→12:54)
[2017-06-28] MEDS ORDERED: METOPROLOL TARTRATE 1 MG/ML VIAL IV STA ×2 (11:25→15:03)
--- NOTE | 2017-06-28 11:30 | Cardiology Consultation ---
Cardiology Consultation Date of Service Jun 28, 2017. (Nona Sellers, UGO) Cardiology Consultation Cardiology Consultation: Date: 06/28/2017 Requesting Provider: Dr. Head Attending Dye Weigher Helper: Dr. Kingston HPI: Patient is a 57 year old male known to Dr. Kendrick/Dr. Han of [facility] cardiology for complex past medical history including paroxysmal atrial fibrillation on chronic anticoagulation, nonischemic cardiomyopathy, ejection fraction 30-45%, history of paroxysmal ventricular tachycardia status post 2 attempted VT ablations in [place] (failed per patient) previously on flecainide and recently transitioned to high dose sotalol during elective admission last week due to atrial fib with RVR. He currently has a Reveal Device. He presented to ER last evening with concerns regarding palpitations and irregular heart rhythms. occurring over the last 12 hours. He noted intermittent dizziness. No syncope or near syncope. no chest pain or SOB. Has been taking sotalol without skipped doses. No orthopnea, PND or edema. Upon arrival he was found to have probable atrial fib with RVR and wide complex tachycardia (QRS morphology changed from baseline). Patient was started on IV amiodarone with discontinuation of sotalol. Labs stable. Cardiac enzymes unremarkable. Throughout the night and this AM he has recurrent afib with RVR, intermittent wide complex tachycardia, and intermittent NSR. He continues to note intermittent palpitations and fluttering sensation but denies associated syncope or near syncope. No chest pain or SOB. Review of Systems: See HPI for pertinent positives. All other 10 point review of systems is negative. PAST MEDICAL HISTORY: Medical Problems: (1) Afib (2) COPD (chronic obstructive pulmonary disease) (3) GERD (gastroesophageal reflux disease) (4) Sleep apnea 5. Obesity 6. GERD 7. Anxiety 8. Non ischemic cardiomyopathy, LVEF most recently 45%. 9. History of VT ablation x2 Surgical Problems: (1) History of cardiac catheterization PAST SURGICAL HISTORY: Colonoscopy, cardiac catheterization, VT ablation x2 in [place], incision of anal sphincter, arthroscopy of the left ACL and repair, T&A when he was a child, repair of an acute shoulder dislocation. FAMILY HISTORY: Positive for his father having diabetes and mother having diabetes as well as hypertension and heart problems. SOCIAL HISTORY: He never smoked. He does use alcohol, can be up to 20 beers on the weekend, right now it is 4. He is and works in the [employer]. ALLERGIES: Shelfish MEDICATIONS: Reported Home Medications Medications Dose Route/Sig Max Daily Dose Days Date Category Ventolin Hfa (Albuterol) 200 Puffs/97971 Mcg Aers 2 Puffs INH Q6H PRN 06/28/17 Reported Eliquis (Apixaban) 5 Mg Tab 5 Mg PO BID 06/23/17 Rx Sotalol HCl 80 Mg Tab 160 Mg PO BID 06/23/17 Rx Albuterol Sulfate (Albuterol Sulf) 2.5 Mg/3 Ml Nebu 1 Dose INH Q4H PRN 04/14/16 Reported Zestril (Lisinopril) 40 Mg Tab 40 Mg PO QAM 04/14/16 Reported Aldactone (Spironolactone) 25 Mg Tab 25 Mg PO QAM 04/14/16 Reported Aspirin 81 (Aspirin) 81 Mg Tab 1 Tab PO QAM 04/14/16 Reported Lipitor (Atorvastatin) 40 Mg Tab 40 Mg PO QAM 04/14/16 Reported Ibuprofen 800 Mg Tab 800 Mg PO DAILY PRN 10/09/14 Reported Dulera 200/5 Mcg (Mometasone Furoate-Formoterol) 1 Aer Aer 1 Aer INH BID 10/09/14 Reported Lasix (Furosemide) 40 Mg Tab 40 Mg PO QAM 10/09/14 Reported Glucophage (Metformin Hcl) 500 Mg Tab 500 Mg PO BID 10/09/14 Reported Klor-Con (Potassium Chloride) 20 Meq Tabcr 20 Meq PO QAM 10/09/14 Reported Vitamin D 1000 Unit (Cholecalciferol) 1,000 Unit Cap 1,000 Inter.unit PO QAM 06/18/12 Reported Levitra (Vardenafil Hcl) 20 Mg Tab 20 Mg PO DIRECTED 06/18/12 Reported PHYSICAL EXAMINATION: Last 8 Hrs Date Time Temp Pulse Resp B/P (MAP) Pulse Ox O2 Delivery O2 Flow Rate FiO2 06/28/17 07:38 36.7 95 20 144/79 (100) 98 Room Air 06/28/17 04:00 CPAP 06/28/17 03:34 36.7 53 20 123/70 (87) 98 CPAP GENERAL: He is awake, alert and oriented x3, in no acute distress, sitting up in the bed comfortably. HEENT: Normocephalic, atraumatic. Extraocular motion intact. Sclerae nonicteric. Mucous membranes moist. NECK: Supple and thick. CARDIOVASCULAR: Irregularly irregular, tachycardic. No murmur appreciated. No palpable heave or thrill. Positive PVCs are noted on telemetry. Pulses are intact. No lower extremity edema. PULMONARY: Clear to auscultation bilaterally. No wheezes, rales or rhonchi. ABDOMEN: Soft. NEUROLOGIC: Grossly intact. SKIN: Grossly intact. DATA: EKG on admission: Afib with RVR RBBB Septal infarct T wave abnormality in inferolateral leads Compared with prior EKG on 06/23, afib has replaced sinus. Telemetry reviewed - Afib with RVR with intermittent NSR, and wide complex tachycardia, unspecified. Torsades/VT vs afib. Labs: Last 24 Hours Test 06/27/17 23:55 06/28/17 00:01 06/28/17 06:40 06/28/17 06:47 White Blood Count 6.78 K/uL 7.64 K/uL Red Blood Count 4.06 M/uL 4.40 M/uL Hemoglobin 12.8 g/dL 13.8 g/dL Hematocrit 37.1 % 40.2 % Mean Corpuscular Volume 91.4 fL 91.4 fL Mean Corpuscular Hemoglobin 31.5 pg 31.4 pg Mean Corpuscular Hemoglobin Concent 34.5 g/dl 34.3 g/dl Platelet Count 204 K/uL 191 K/uL Mean Platelet Volume 9.5 fL 9.6 fL Neutrophils (%) (Auto) 50.8 % Lymphocytes (%) (Auto) 36.6 % Monocytes (%) (Auto) 8.7 % Eosinophils (%) (Auto) 3.5 % Basophils (%) (Auto) 0.1 % Neutrophils # (Auto) 3.44 K/uL Lymphocytes # (Auto) 2.48 K/uL Monocytes # (Auto) 0.59 K/uL Eosinophils # (Auto) 0.24 K/uL Basophils # (Auto) 0.01 K/uL RDW Standard Deviation 43.7 fL 44.3 fL RDW Coefficient of Variation 13.3 % 13.3 % Immature Granulocyte % (Auto) 0.3 % Immature Granulocyte # (Auto) 0.02 K/uL Prothrombin Time 13.4 SECONDS Prothromb Time International Ratio 1.2 Activated Partial Thromboplast Time 31.2 SECONDS Partial Thromboplastin Ratio 1.2 Sodium Level 139 mmol/L 138 mmol/L Potassium Level 4.0 mmol/L 4.3 mmol/L Chloride Level 105 mmol/L 107 mmol/L Carbon Dioxide Level 25 mmol/L 23 mmol/L Anion Gap 9.0 mmol/L 8.0 mmol/L Blood Urea Nitrogen 23 mg/dl 20 mg/dl Creatinine 1.04 mg/dl 0.97 mg/dl Est Creatinine Clear Calc Drug Dose 104.2 ml/min 111.7 ml/min Estimated GFR () 92.6 100.7 Estimated GFR (Non- 79.9 86.9 BUN/Creatinine Ratio 22.1 20.5 Random Glucose 185 mg/dl 162 mg/dl Calcium Level 8.8 mg/dl 8.9 mg/dl Magnesium Level 1.9 mg/dl 1.8 mg/dl Total Bilirubin 0.3 mg/dl Direct Bilirubin < 0.1 mg/dl Aspartate Amino Transf (AST/SGOT) 18 U/L Alanine Aminotransferase (ALT/SGPT) 44 U/L Alkaline Phosphatase 82 U/L Total Creatine Kinase 132 U/L Creatine Kinase MB 0.7 ng/ml Creatine Kinase MB Ratio 0.5 Total Protein 7.1 gm/dl Albumin 3.5 gm/dl Bedside Troponin I < 0.030 ng/ml Bedside Glucose 156 mg/dl Thyroid Stimulating Hormone (TSH) 1.810 uIu/ml IMPRESSION: 1. complex ventricular arrhythmias -Discussed/reviewed case with Dr. Han. Recommend discontinuing IV amiodarone and begin IV Mag 4 gm total now -EP Consult with Dr. Roberts. -Sotalol on hold -Reveal device interrogated. -further recommendations pending eval with Dr. Roberts and Dr. Han -intiiate low dose beta jeremias 2. History of Paroxysmal atrial fibrillation with a CHADS-VASc score of 4 for hypertension, nonischemic cardiomyopathy, heart failure, and diabetes. On chronic anticoagulation therapy 3. Nonischemic cardiomyopathy, ejection fraction 32%; but most recently in 2017 spring was 47% by nuclear. 4. Paroxysmal ventricular tachycardia status post 2 attempted VT ablations in [place], as per patient they were unsuccessful and he has been on flecainide in the past, then transitioned to sotalol.. 5. Chronic systolic heart failure, [place] Heart Association class 2. 6. Hypertension. 7. Hyperlipidemia. 8. Severe chronic obstructive pulmonary disease. 9. Obstructive sleep apnea, on CPAP. 10. Diabetes. case discussed with Dr. Kingston, Dr. Han and Dr. Roberts. Continue telemetry. Will Follow. (Nona Sellers PA-C) CARDIOLOGY ATTENDING ADDENDUM: The patient was seen and personally examined. Agree with Nona Sellers PA-C's findings and plans as documented above. We should consult Dr. Roberts for this patient with complex arrhythmias (Geo Kingston, DO)
--- NOTE | 2017-06-28 12:23 | Cardiology Consultation ---
Cardiology Consultation Date of Consultation: Jun 28, 2017. Requesting Physician: Dr. Kingston Reason for Consultation: Wide complex tachycardia, Atrial fibrillation Pt evaluation today including: conversation w/ patient, physical exam, lab review, review of studies, review of inpatient medication list, conversation w/ attending History of Present Illness This is a very pleasant 57-year-old gentleman who has a history of ventricular tachycardia for which he has had an extensive evaluation and several ablation attempts. Evidently he was on amiodarone in the past which was stopped due to fatigue, he had electrophysiology study and RF ablation in [place] on 2014. I'm not sure exactly what was done at that time but he had recurrence shortly thereafter and one month later was in sustained ventricular tachycardia. He had a second VT ablation performed 06/09/2015 which evidently included sites at the left coronary cusp, left ventricular outflow tract, anterolateral basal LV and left pulmonary artery. Evidently there was suppression of his VT but he still had nonsustained VT. At that time his ejection fraction was noted to be 32% although in the setting of frequent ventricular ectopy. With continued ectopy post ablation he was started on flecainide which I believe was started at 50 mg twice a day and titrated to 100 mg twice a day but that was the highest dose. I believe he has also been on carvedilol at 12.5 mg twice a day. Coronary angiography has demonstrated no significant disease. A more recent left ventricular ejection fraction was 47%. He also has a history of atrial fibrillation, I don't have details regarding that, he does have a [employer] link loop recorder in place and that has evidently shown atrial fibrillation. Due to ineffectiveness of flecainide 100 mg twice a day he was hospitalized here about a week ago for initiation of sotalol. He was titrated sotalol 160 mg twice a day and discharged on that dose. He noticed a feeling of his heart racing (but no hemodynamic symptoms) and presented to his local hospital and was transferred here. Here he was observed to have continued very frequent and sustained episodes of a wide complex tachycardia. Once again he feels the fast heart rate but does not have lightheadedness, dizziness, or presyncope. He does not have chest discomfort or shortness of breath. Past Medical/Surgical History (1) Afib (2) Sleep apnea (3) GERD (gastroesophageal reflux disease) (4) COPD (chronic obstructive pulmonary disease) Family History Diabetes mellitus Heart disease Hypertension Social History Smoking Status: Never Smoker History of Alcohol Use: Yes (12 pack of beer weekly) Review of Systems Constitutional: No fever, No weight loss, No weakness Respiratory: No cough, No wheezing, No shortness of breath, No dyspnea on exertion Cardiac: + see HPI, + palpitations, No chest pain, No orthopnea, No PND, No edema Abdomen: No pain, No nausea, No vomiting, No diarrhea, No GI bleeding Male : No urinary frequency, No nocturia more than once/night, No slowing stream, No sexual dysfunction Neurologic: No paralysis, No weakness, No numbness/tingling, No balance problems Heme: No abnormal bleeding/bruising, No clotting problems Endo: No fatigue Skin: No problem reported All Other Systems: Reviewed and Negative Allergies Coded Allergies: Shellfish (Verified Allergy, Severe, HIVES,SOB, 06/28/17) Medications Current Inpatient Medications Medications (Trade) Dose Ordered Sig/Regine Route Start Time Stop Time Status Last Admin Dose Admin Insulin Aspart (novoLOG ASPART) SLIDING SCALE If C... ACHS SC 06/28/17 07:00 07/28/17 06:59 Glucose (Glucose 40% Gel) 15-30 GRAMS 15 GRAMS... UD PRN PO 06/28/17 01:15 07/28/17 01:14 Glucose (Glucose Chew Tab) 4-8 Tablets 4 Tabl... UD PRN PO 06/28/17 01:15 07/28/17 01:14 Dextrose (Dextrose 50% 50ML Syringe) 25-50ML OF 50% DW IV FOR... UD PRN IV 06/28/17 01:15 07/28/17 01:14 Glucagon (Glucagon Inj) 1 mg UD PRN SQ 06/28/17 01:15 07/28/17 01:14 Albuterol (Ventolin Hfa Inhaler) 2 puffs Q6H PRN INH 06/28/17 01:15 07/28/17 01:14 Aspirin (Ecotrin Tab) 81 mg QAM PO 06/28/17 09:00 07/28/17 08:59 06/28/17 08:18 81 MG Atorvastatin Calcium (Lipitor Tab) 40 mg QAM PO 06/28/17 09:00 07/28/17 08:59 06/28/17 08:17 40 MG Lisinopril (Zestril Tab) 40 mg QAM PO 06/28/17 09:00 07/28/17 08:59 06/28/17 08:23 40 MG Potassium Chloride (Klor-Con Tab) 20 meq QAM PO 06/28/17 09:00 07/28/17 08:59 06/28/17 08:17 20 MEQ Spironolactone (Aldactone Tab) 25 mg QAM PO 06/28/17 09:00 07/28/17 08:59 06/28/17 08:20 25 MG Apixaban (Eliquis Tab) 5 mg BID PO 06/28/17 09:00 07/28/17 08:59 06/28/17 08:22 5 MG Salmeterol Xinafoate/ Fluticasone (Advair Diskus 500/50 Inh) 1 puff BID INH 06/28/17 09:00 07/28/17 08:59 06/28/17 08:19 1 PUFF Albuterol/ Ipratropium (Duoneb) 3 ml Q4R PRN INH 06/28/17 01:15 07/28/17 01:14 Magnesium Sulfate 1 gm/Prmx 100 ml @ 100 mls/hr Q1H IV 06/28/17 11:30 06/28/17 13:29 Physical Exam Vital Signs Past 12 Hours Date Time Temp Pulse Resp B/P (MAP) Pulse Ox O2 Delivery O2 Flow Rate FiO2 06/28/17 11:53 99 06/28/17 10:53 36.8 109 22 133/89 (104) 96 Room Air 06/28/17 08:00 98 Room Air 06/28/17 07:38 36.7 95 20 144/79 (100) 98 Room Air 06/28/17 04:00 CPAP 06/28/17 03:34 36.7 53 20 123/70 (87) 98 CPAP 06/28/17 02:27 120 97 21 06/28/17 02:10 36.4 109 18 133/103 97 Room Air 06/28/17 01:11 103 16 98 Room Air 06/28/17 01:01 100/79 06/28/17 00:56 97 16 97 Room Air 06/28/17 00:41 115 16 98 Room Air 06/28/17 00:31 116 06/28/17 00:26 95 18 98 Room Air 06/28/17 00:25 122/93 06/28/17 00:15 85 06/28/17 00:11 93 23 99 06/28/17 00:06 117 134/88 98 Room Air 06/28/17 00:06 116 134/88 06/28/17 00:04 62 06/28/17 00:04 122 06/27/17 23:58 116 98 Room Air Constitutional: General Apperance: heathly-appearing Level of Distress: NAD Psychiatric: Mental Status: active & alert Head: normocephalic Eyes: EOM: EOMI ENMT: normal ENT inspection, hearing grossly normal Neck: supple, no masses Lungs: Respiratory effort: no dyspnea, good air movement Auscultation: breath sounds normal, no wheezing Cardiovascular: Heart Auscultation: RRR, no murmurs, no rubs, no gallops, tachycardia Peripheral Pulses: Bruits: none appreciated Abdomen: Bowel Sounds: normal Inspection & Palpation: soft, no tenderness, guarding & rebound, no masses Musculoskeletal: normal strength (5/5 throughout) Extremities: no edema Neurologic: Cranial Nerves: grossly intact Sensation: grossly intact Data Laboratory Results: Last 24 Hours Test 06/27/17 23:55 06/28/17 00:01 06/28/17 06:40 06/28/17 06:47 White Blood Count 6.78 K/uL 7.64 K/uL Red Blood Count 4.06 M/uL 4.40 M/uL Hemoglobin 12.8 g/dL 13.8 g/dL Hematocrit 37.1 % 40.2 % Mean Corpuscular Volume 91.4 fL 91.4 fL Mean Corpuscular Hemoglobin 31.5 pg 31.4 pg Mean Corpuscular Hemoglobin Concent 34.5 g/dl 34.3 g/dl Platelet Count 204 K/uL 191 K/uL Mean Platelet Volume 9.5 fL 9.6 fL Neutrophils (%) (Auto) 50.8 % Lymphocytes (%) (Auto) 36.6 % Monocytes (%) (Auto) 8.7 % Eosinophils (%) (Auto) 3.5 % Basophils (%) (Auto) 0.1 % Neutrophils # (Auto) 3.44 K/uL Lymphocytes # (Auto) 2.48 K/uL Monocytes # (Auto) 0.59 K/uL Eosinophils # (Auto) 0.24 K/uL Basophils # (Auto) 0.01 K/uL RDW Standard Deviation 43.7 fL 44.3 fL RDW Coefficient of Variation 13.3 % 13.3 % Immature Granulocyte % (Auto) 0.3 % Immature Granulocyte # (Auto) 0.02 K/uL Prothrombin Time 13.4 SECONDS Prothromb Time International Ratio 1.2 Activated Partial Thromboplast Time 31.2 SECONDS Partial Thromboplastin Ratio 1.2 Sodium Level 139 mmol/L 138 mmol/L Potassium Level 4.0 mmol/L 4.3 mmol/L Chloride Level 105 mmol/L 107 mmol/L Carbon Dioxide Level 25 mmol/L 23 mmol/L Anion Gap 9.0 mmol/L 8.0 mmol/L Blood Urea Nitrogen 23 mg/dl 20 mg/dl Creatinine 1.04 mg/dl 0.97 mg/dl Est Creatinine Clear Calc Drug Dose 104.2 ml/min 111.7 ml/min Estimated GFR () 92.6 100.7 Estimated GFR (Non- 79.9 86.9 BUN/Creatinine Ratio 22.1 20.5 Random Glucose 185 mg/dl 162 mg/dl Calcium Level 8.8 mg/dl 8.9 mg/dl Magnesium Level 1.9 mg/dl 1.8 mg/dl Total Bilirubin 0.3 mg/dl Direct Bilirubin < 0.1 mg/dl Aspartate Amino Transf (AST/SGOT) 18 U/L Alanine Aminotransferase (ALT/SGPT) 44 U/L Alkaline Phosphatase 82 U/L Total Creatine Kinase 132 U/L Creatine Kinase MB 0.7 ng/ml Creatine Kinase MB Ratio 0.5 Total Protein 7.1 gm/dl Albumin 3.5 gm/dl Bedside Troponin I < 0.030 ng/ml Bedside Glucose 156 mg/dl Thyroid Stimulating Hormone (TSH) 1.810 uIu/ml Imaging: EKG: During tachycardia he has a wide complex rhythm at a rate of around 128 bpm (on 06/27/2017 at 2339). The morphology is inferiorly directed and there are Q waves in V1 although upright V2 through V6. There appears to be atrial activity immediately following the QRS complex and a complex is a little bit irregular. This appears to be a ventricular origin consistent with his history of ventricular tachycardia. Telemetry reviewed: Predominantly in his wide complex rhythm (I believe ventricular tachycardia) with some periods of sinus rhythm and sinus bradycardia. He seems to be in his wide complex rhythm close to half of the time judging by telemetry. Often the wide complex sustained rhythm starts with a burst of a different morphology nonsustained wide complex rhythm which is probably another form of nonsustained ventricular tachycardia. Assessment & Plan #1. Wide complex rhythm: I believe this is ventricular tachycardia and is probably consistent with his history of idiopathic ventricular tachycardia. He has had several ablation attempts in the feeling was after his last one that perhaps it is an epicardial focus. Flecainide 100 mg twice a day was not effective in controlling his atrial fibrillation and his ventricular arrhythmia , when switched to sotalol 160 mg twice a day it did not suppress his ventricular arrhythmia. He was given a load of amiodarone on arrival, but now we have discontinued both the amiodarone and the sotalol (his last dose of sotalol was evening of 06/27/2017). At this point I would not add a different antiarrhythmic until these others washout. I am going to try beta blockade with intravenous metoprolol to see if that will help control his arrhythmia. Many times these are catecholamine dependent and higher dose of a beta jeremias may be beneficial. #2. Atrial fibrillation: Although he has so much wide complex rhythm this visit is difficult to tell if he might have atrial fibrillation but I don't see any clear evidence of it. I don't think we need an antiarrhythmic right away but I would continue anti-coagulation. If we can control his ventricular arrhythmia to a certain extent with metoprolol I would probably restart flecainide, probably at a higher dose. With his age and size I think he can be on higher doses of both flecainide and beta blockade than he was in the past. #3. Cardiomyopathy: Although he has a nonischemic cardiomyopathy some of it might be due to his ventricular arrhythmia, therefore suppression of his arrhythmia may be beneficial. Although I usually use carvedilol for cardiomyopathy is I think metoprolol is a better antiarrhythmic and may be sufficient for treatment of his cardiomyopathy. Thank you for allowing me to participate in his care.
[2017-06-28] MEDS ORDERED: METOPROLOL TARTRATE 1 MG/ML VIAL IV. ONE (12:52)
--- NOTE | 2017-06-28 17:07 | Progress Note ---
Internal Med Progress Note Date of Service: Jun 28, 2017. Provider Documentation: SUBJECTIVE: resting comfortably not feeling any palpitations at this time no chest pain or sob afebrile OBJECTIVE: Vital Signs-as noted below Exam: General-alert and oriented. Not in distress ENT-Normal hearing Neck-no neck masses Lungs-CTA b/l no wheezing or crackles Heart-S1 and S2 heard. Irregular rate and rhythm, no murmurs Abdomen-Soft Bowel sounds present no tenderness present no distension Extremities-no pedal edema no erythema Neuro-alert and awake moves extremities Lab data as noted below. ASSESSMENT & PLAN: This is a 57 year old male with a PMH of paroxysmal atrial fibrillation, paroxysmal ventricular tachycardia s/p two failed ablations, COPD, DM2, HLD, nonischemic cardiomyopathy and systolic CHF with EF ~ 45%, SIERRA on CPAP presents to the ED due to palpitations and rapid heart beat Paroxysmal A. Fib Paroxysmal Ventricular Tachycardia patient presents with tachycardia in the 130s-140s was just changed from Flecainide to Sotalol on 06/20 and discharged on 06/23 received Amiodarone bolus/drip for now continue Eliquis 5mg BID - patient was taking Xarelto, switched last week, though unsure if he actually made the switch at home; either way, we will continue Eliquis for now cardiology planning to restart flecainide at higher dose and Lopressor when amiodarone is washed out of system also recieve iv magnesium today continue to monitor in tele Nonischemic Cardiomyopathy Systolic CHF with EF around 45% holding Lasix for now (elevated BUN:creat ratio), restart in 1-2 days To continue Lisinopril and Aldactone DM2 holding oral agents insulin sliding scale will monitor COPD takes Dulera, will use Advair while here Ventolin nebs as needed SIERRA on CPAP HLD continue Lipitor DVT ppx Eliquis FULL CODE DISPOSITION monitor in tele to be determined Vital Signs: Date Time Temp Pulse Resp B/P (MAP) Pulse Ox O2 Delivery O2 Flow Rate FiO2 06/28/17 16:00 Room Air 06/28/17 15:37 37.0 80 18 114/82 (93) 98 Room Air 06/28/17 15:23 111 116/81 06/28/17 12:53 92 135/86 06/28/17 12:00 99 Room Air 06/28/17 11:53 99 06/28/17 10:53 36.8 109 22 133/89 (104) 96 Room Air 06/28/17 08:00 98 Room Air 06/28/17 07:38 36.7 95 20 144/79 (100) 98 Room Air 06/28/17 04:00 CPAP 06/28/17 03:34 36.7 53 20 123/70 (87) 98 CPAP 06/28/17 02:27 120 97 21 06/28/17 02:10 36.4 109 18 133/103 97 Room Air 06/28/17 01:11 103 16 98 Room Air 06/28/17 01:01 100/79 06/28/17 00:56 97 16 97 Room Air 06/28/17 00:41 115 16 98 Room Air 06/28/17 00:31 116 06/28/17 00:26 95 18 98 Room Air 06/28/17 00:25 122/93 06/28/17 00:15 85 06/28/17 00:11 93 23 99 06/28/17 00:06 117 134/88 98 Room Air 06/28/17 00:06 116 134/88 06/28/17 00:04 62 06/28/17 00:04 122 06/27/17 23:58 116 98 Room Air 06/27/17 23:51 127 06/27/17 23:47 99 Room Air 06/27/17 23:46 121 06/27/17 23:44 115 06/27/17 23:44 123 118/87 98 Room Air 06/27/17 23:30 36.6 109 24 144/90 97 Room Air Lab Results: Results Past 24 Hours Test 06/27/17 23:55 06/28/17 00:01 06/28/17 06:40 06/28/17 06:47 Range/Units White Blood Count 6.78 7.64 4.8-10.8 K/uL Red Blood Count 4.06 4.40 4.7-6.1 M/uL Hemoglobin 12.8 13.8 14.0-18.0 g/dL Hematocrit 37.1 40.2 42-52 % Mean Corpuscular Volume 91.4 91.4 80-100 fL Mean Corpuscular Hemoglobin 31.5 31.4 25-34 pg Mean Corpuscular Hemoglobin Concent 34.5 34.3 32-36 g/dl Platelet Count 204 191 130-400 K/uL Mean Platelet Volume 9.5 9.6 7.4-10.4 fL Neutrophils (%) (Auto) 50.8 % Lymphocytes (%) (Auto) 36.6 % Monocytes (%) (Auto) 8.7 % Eosinophils (%) (Auto) 3.5 % Basophils (%) (Auto) 0.1 % Neutrophils # (Auto) 3.44 1.4-6.5 K/uL Lymphocytes # (Auto) 2.48 1.2-3.4 K/uL Monocytes # (Auto) 0.59 0.11-0.59 K/uL Eosinophils # (Auto) 0.24 0-0.5 K/uL Basophils # (Auto) 0.01 0-0.2 K/uL RDW Standard Deviation 43.7 44.3 36.4-46.3 fL RDW Coefficient of Variation 13.3 13.3 11.5-14.5 % Immature Granulocyte % (Auto) 0.3 % Immature Granulocyte # (Auto) 0.02 0.00-0.02 K/uL Prothrombin Time 13.4 9.0-12.0 SECONDS Prothromb Time International Ratio 1.2 0.9-1.1 Activated Partial Thromboplast Time 31.2 21.0-31.0 SECONDS Partial Thromboplastin Ratio 1.2 Sodium Level 139 138 136-145 mmol/L Potassium Level 4.0 4.3 3.5-5.1 mmol/L Chloride Level 105 107 98-107 mmol/L Carbon Dioxide Level 25 23 21-32 mmol/L Anion Gap 9.0 8.0 3-11 mmol/L Blood Urea Nitrogen 23 20 7-18 mg/dl Creatinine 1.04 0.97 0.60-1.40 mg/dl Est Creatinine Clear Calc Drug Dose 104.2 111.7 ml/min Estimated GFR () 92.6 100.7 Estimated GFR (Non- 79.9 86.9 BUN/Creatinine Ratio 22.1 20.5 10-20 Random Glucose 185 162 70-99 mg/dl Calcium Level 8.8 8.9 8.5-10.1 mg/dl Magnesium Level 1.9 1.8 1.8-2.4 mg/dl Total Bilirubin 0.3 0.2-1 mg/dl Direct Bilirubin < 0.1 0-0.2 mg/dl Aspartate Amino Transf (AST/SGOT) 18 15-37 U/L Alanine Aminotransferase (ALT/SGPT) 44 12-78 U/L Alkaline Phosphatase 82 45-117 U/L Total Creatine Kinase 132 39-308 U/L Creatine Kinase MB 0.7 0.5-3.6 ng/ml Creatine Kinase MB Ratio 0.5 0-3.0 Total Protein 7.1 6.4-8.2 gm/dl Albumin 3.5 3.4-5.0 gm/dl Bedside Troponin I < 0.030 0-0.045 ng/ml Bedside Glucose 156 70-99 mg/dl Thyroid Stimulating Hormone (TSH) 1.810 0.300-4.500 uIu/ml Test 06/28/17 16:17 Range/Units Bedside Glucose 116 70-99 mg/dl
[2017-06-28] MEDS: METOPROLOL TARTRATE 100 MG TAB PO SCH (20:16)
[2017-06-29] VITALS (10 sets, daily range): BP systolic 107–128; BP diastolic 68–91; PULSE 57–112; TEMP 36.5–36.9; O2SAT 95–98
[2017-06-29] MEDS: FLUTICASONE/SALMETEROL (ADVAIR) 500/50 INH 14 PUFF INH SCH ×2 (08:18→21:00)
[2017-06-29] MEDS: ASPIRIN 81 MG ECTAB PO SCH (08:19)
[2017-06-29] MEDS: SPIRONOLACTONE 25 MG TAB PO SCH (08:19)
[2017-06-29] MEDS: ATORVASTATIN 40 MG TAB PO SCH (08:20)
[2017-06-29] MEDS: APIXABAN 2.5 MG TAB PO SCH ×2 (08:20→20:58)
[2017-06-29] MEDS: METOPROLOL TARTRATE 100 MG TAB PO SCH ×2 (08:21→20:58)
[2017-06-29] MEDS: POTASSIUM CHLORIDE 20 MEQ TABCR PO SCH (08:21)
[2017-06-29] MEDS: LISINOPRIL 40 MG TAB PO SCH (08:22)
[2017-06-29] MEDS: INSULIN ASPART 100 UNITS/ML 3 ML PEN SC SCH ×4 (08:26→21:10)
--- NOTE | 2017-06-29 09:05 | Cardiology Follow-Up ---
Subjective Date of Service: Jun 29, 2017. Pt evaluation today including: conversation w/ patient, physical exam, lab review, review of studies, review of inpatient medication list History of Present Illness This is a very pleasant 57-year-old gentleman who has a history of ventricular tachycardia for which he has had an extensive evaluation and several ablation attempts. Evidently he was on amiodarone in the past which was stopped due to fatigue, he had electrophysiology study and RF ablation in [place] on 2014. I'm not sure exactly what was done at that time but he had recurrence shortly thereafter and one month later was in sustained ventricular tachycardia. He had a second VT ablation performed 06/09/2015 which evidently included sites at the left coronary cusp, left ventricular outflow tract, anterolateral basal LV and left pulmonary artery. Evidently there was suppression of his VT but he still had nonsustained VT. At that time his ejection fraction was noted to be 32% although in the setting of frequent ventricular ectopy. With continued ectopy post ablation he was started on flecainide which I believe was started at 50 mg twice a day and titrated to 100 mg twice a day but that was the highest dose. I believe he has also been on carvedilol at 12.5 mg twice a day. Coronary angiography has demonstrated no significant disease. A more recent left ventricular ejection fraction was 47%. He also has a history of atrial fibrillation, I don't have details regarding that, he does have a [employer] link loop recorder in place and that has evidently shown atrial fibrillation. Due to ineffectiveness of flecainide 100 mg twice a day he was hospitalized here about a week ago for initiation of sotalol. He was titrated sotalol 160 mg twice a day and discharged on that dose. He noticed a feeling of his heart racing (but no hemodynamic symptoms) and presented to his local hospital and was transferred here. Here he was observed to have continued very frequent and sustained episodes of a wide complex tachycardia. Once again he feels the fast heart rate but does not have lightheadedness, dizziness, or presyncope. He does not have chest discomfort or shortness of breath. With residual effects of sotalol and amiodarone probably still present yesterday I did not want to start an antiarrhythmic. Intravenous metoprolol ( 2.5 mg IV twice) was quite effective and transiently suppressing his ventricular arrhythmia. I started him on 100 mg twice a day of metoprolol tartrate last evening. He has no complaints today. Social History Smoking Status: Never Smoker History of Alcohol Use: Yes (12 pack of beer weekly) Review of Systems Respiratory: No cough, No wheezing, No shortness of breath, No dyspnea on exertion Cardiac: + see HPI, + palpitations, No chest pain, No orthopnea, No PND, No edema Medications Cardiovascular: Item Value Date Time Metoprolol 100 mg 06/28/17 2100 Tartrate BID/PO 06/29/17 0821 (Lopressor Tab) Aspirin 81 mg 06/28/17 0900 (Ecotrin Tab) QAM/PO 06/29/17 0819 Atorvastatin 40 mg 06/28/17 0900 Calcium QAM/PO 06/29/17 0820 (Lipitor Tab) Lisinopril 40 mg 06/28/17 0900 (Zestril Tab) QAM/PO 06/29/17 0822 Potassium Chloride 20 meq 06/28/17 0900 (Klor-Con Tab) QAM/PO 06/29/17 0821 Spironolactone 25 mg 06/28/17 0900 (Aldactone Tab) QAM/PO 06/29/17 0819 Apixaban 5 mg 06/28/17 0900 (Eliquis Tab) BID/PO 06/29/17 0820 Objective Vital Signs Past 12 Hours Date Time Temp Pulse Resp B/P (MAP) Pulse Ox O2 Delivery O2 Flow Rate FiO2 06/29/17 07:40 36.7 112 20 128/91 (103) 97 Room Air 06/29/17 04:00 CPAP 06/29/17 03:47 36.5 57 19 109/69 (82) 98 Room Air 06/29/17 00:00 CPAP 06/28/17 23:49 36.5 102 18 112/68 (83) 97 Room Air Last Recorded Weight-Kilograms: 127.900 Physical Exam Constitutional: General Apperance: heathly-appearing Level of Distress: NAD Lungs: Respiratory effort: no dyspnea, good air movement Auscultation: breath sounds normal, no wheezing Cardiovascular: Heart Auscultation: RRR, no murmurs, no rubs, no gallops, tachycardia Peripheral Pulses: Bruits: none appreciated Extremities: no edema Data Laboratory Results: Last 24 Hours Test 06/28/17 16:17 06/28/17 20:17 06/29/17 06:21 Bedside Glucose 116 mg/dl 133 mg/dl 143 mg/dl Telemetry reviewed: Predominantly ventricular tachycardia since yesterday afternoon, transient suppression of VT following IV metoprolol. Oral metoprolol was not effective in suppressing the arrhythmia. Assessment and Plan #1. Wide complex rhythm: I believe this is ventricular tachycardia and is probably consistent with his history of idiopathic ventricular tachycardia. He has had several ablation attempts in the feeling was after his last one that perhaps it is an epicardial focus. Flecainide 100 mg twice a day was not effective in controlling his atrial fibrillation and his ventricular arrhythmia , when switched to sotalol 160 mg twice a day it did not suppress his ventricular arrhythmia. He was given a load of amiodarone on arrival, but now we have discontinued both the amiodarone and the sotalol (his last dose of sotalol was evening of 06/27/2017). Intravenous beta blockade was helpful in suppressing the ventricular tachycardia, but on oral starting yesterday evening he has had predominantly ventricular tachycardia. We could go up on the beta jeremias, but I would prefer to restart the flecainide as he will need some type of antiarrhythmic I suspect. His last dose of sotalol was on 06/27/2017 and there is probably not significant residual effect. I will start a low dose of 50 mg by mouth now, if there is no evidence of toxicity and if it is not effective I will increase that to 100 mg this evening. I'll check an electrocardiogram in the morning. #2. Atrial fibrillation: Although he has so much wide complex rhythm this visit is difficult to tell if he might have atrial fibrillation but I don't see any clear evidence of it. I would continue anti-coagulation. With his age and size I think he can be on higher doses of both flecainide and beta blockade than he was in the past. #3. Cardiomyopathy: Although he has a nonischemic cardiomyopathy some of it might be due to his ventricular arrhythmia, therefore suppression of his arrhythmia may be beneficial. Although I usually use carvedilol for cardiomyopathy is I think metoprolol is a better antiarrhythmic and may be sufficient for treatment of his cardiomyopathy. He is currently on metoprolol tartrate but we can switch that to metoprolol succinate once we have the appropriate dose. Thank you for allowing me to participate in his care.
[2017-06-29] MEDS: FLECAINIDE ACETATE 100 MG TAB PO SCH ×2 (10:24→20:58)
--- NOTE | 2017-06-29 12:35 | Cardiology Follow-Up ---
Subjective Subjective Date of Service: Jun 29, 2017. Pt evaluation today including: conversation w/ patient, physical exam, chart review, lab review, review of studies, review of inpatient medication list Additional Details: Pt seen and examined, oob ambulating in room. States that he feels well except for continued palpitations. Denies cp, sob, lightheadedness or dizziness. Tele reviewed: sinus rhythm with recurrent runs of hemodynamically stable ventricular tachycardia Problem List Medical Problems: (1) Rapid atrial fibrillation Status: Acute (2) Ventricular tachycardia, non-sustained Status: Acute Review of Systems Constitutional: No fever, No weight loss, No weakness Respiratory: No cough, No wheezing, No shortness of breath, No dyspnea on exertion Cardiac: + see HPI, + palpitations, No chest pain, No orthopnea, No PND, No edema Abdomen: No pain, No nausea, No vomiting, No diarrhea, No GI bleeding Male : No urinary frequency, No nocturia more than once/night, No slowing stream, No sexual dysfunction Neurologic: No paralysis, No weakness, No numbness/tingling, No balance problems Heme: No abnormal bleeding/bruising, No clotting problems Endo: No fatigue Skin: No problem reported Objective Vital Signs Last Vital Signs Documentation Date Time Temp Pulse Resp B/P (MAP) Pulse Ox O2 Delivery O2 Flow Rate FiO2 06/29/17 11:36 36.6 112 19 114/75 (88) 97 Room Air 06/28/17 02:27 21 Physical Exam: General Appearance: WD/WN, no apparent distress Eyes: bilateral eyes normal inspection, bilateral eyes PERRL, bilateral eyes EOMI ENT: normal ENT inspection, hearing grossly normal, pharynx normal Neck: supple, no adenopathy, thyroid normal, no JVD, no carotid bruits, trachea midline Respiratory/Chest: chest non-tender, lungs clear, normal breath sounds, no respiratory distress, no accessory muscle use Cardiovascular: regular rate, rhythm, no edema, no JVD, no murmur, + gallop/S4 Abdomen: normal bowel sounds, non tender, soft, no organomegaly, no pulsatile mass Extremities: normal range of motion, non-tender, normal inspection, no pedal edema, no calf tenderness Neurologic/Psychiatric: communications manager II-XII nml as tested, no motor/sensory deficits, alert, normal mood/affect, oriented x 3 Skin: normal color, warm/dry, no rash Lymphatic: no adenopathy Assessment and Plan 1. paroxysmal ventricular tachycardia appreciate electrophysiology input pt now back on flecainide metoprolol being uptitrated will ultimately require ablation of a likely epicardial foci, will need to be done at a tertiary care center with capabilities and experience recommend [facility] to monitor closely
--- NOTE | 2017-06-29 17:20 | Progress Note ---
Internal Med Progress Note Date of Service: Jun 29, 2017. Provider Documentation: SUBJECTIVE: resting comfortably slept ok' denies palpitations or chest pain no sob afebrile no nausea OBJECTIVE: Vital Signs-as noted below Exam: General-alert and oriented. Not in distress ENT-Normal hearing Neck-no neck masses Lungs-CTA b/l no wheezing or crackles Heart-S1 and S2 heard. Irregular rate and rhythm, no murmurs Abdomen-Soft Bowel sounds present no tenderness present no distension Extremities-no pedal edema no erythema Neuro-alert and awake moves extremities Lab data as noted below. ASSESSMENT & PLAN: This is a 57 year old male with a PMH of paroxysmal atrial fibrillation, paroxysmal ventricular tachycardia s/p two failed ablations, COPD, DM2, HLD, nonischemic cardiomyopathy and systolic CHF with EF ~ 45%, SIERRA on CPAP presents to the ED due to palpitations and rapid heart beat Paroxysmal A. Fib Paroxysmal Ventricular Tachycardia patient presents with tachycardia in the 130s-140s was just changed from Flecainide to Sotalol on 06/20 and discharged on 06/23 received Amiodarone bolus/drip for now continue Eliquis 5mg BID - patient was taking Xarelto, switched last week, though unsure if he actually made the switch at home; either way, we will continue Eliquis for now cardiology planning to restart flecainide at higher dose and Lopressor when amiodarone and sotalol is washed out of system also received iv magnesium today started on flecainide 100mg bid and Lopressor 100mg bid today continue to monitor Nonischemic Cardiomyopathy Systolic CHF with EF around 45% holding Lasix for now (elevated BUN:creat ratio), restart in 1-2 days To continue Lisinopril and Aldactone stable DM2 holding oral agents insulin sliding scale 133/143/146/113 will monitor COPD takes Dulera, will use Advair while here Ventolin nebs as needed SIERRA on CPAP HLD continue Lipitor DVT ppx Eliquis FULL CODE DISPOSITION monitor in tele to be determined Vital Signs: Date Time Temp Pulse Resp B/P (MAP) Pulse Ox O2 Delivery O2 Flow Rate FiO2 06/29/17 15:19 36.7 64 18 111/81 (91) 97 Room Air 06/29/17 12:00 95 Room Air 06/29/17 11:36 36.6 112 19 114/75 (88) 97 Room Air 06/29/17 08:00 97 Room Air 06/29/17 07:40 36.7 112 20 128/91 (103) 97 Room Air 06/29/17 04:00 CPAP 06/29/17 03:47 36.5 57 19 109/69 (82) 98 Room Air 06/29/17 00:00 CPAP 06/28/17 23:49 36.5 102 18 112/68 (83) 97 Room Air 06/28/17 20:13 101 149/79 (102) 06/28/17 20:00 Room Air 06/28/17 19:30 36.7 58 20 111/65 (80) 98 Room Air Lab Results: Results Past 24 Hours Test 06/28/17 20:17 06/29/17 06:21 06/29/17 11:10 06/29/17 16:03 Range/Units Bedside Glucose 133 143 146 113 70-99 mg/dl
[2017-06-30] VITALS (9 sets, daily range): BP systolic 103–127; BP diastolic 61–80; PULSE 57–78; TEMP 36.4–37.1; O2SAT 96–99
[2017-06-30] MEDS: APIXABAN 2.5 MG TAB PO SCH ×2 (08:35→21:42)
[2017-06-30] MEDS: METOPROLOL TARTRATE 100 MG TAB PO SCH (08:35)
[2017-06-30] MEDS: FLUTICASONE/SALMETEROL (ADVAIR) 500/50 INH 14 PUFF INH SCH ×2 (08:35→21:39)
[2017-06-30] MEDS: FLECAINIDE ACETATE 100 MG TAB PO SCH ×2 (08:36→21:40)
[2017-06-30] MEDS: POTASSIUM CHLORIDE 20 MEQ TABCR PO SCH (08:36)
[2017-06-30] MEDS: ATORVASTATIN 40 MG TAB PO SCH (08:37)
[2017-06-30] MEDS: LISINOPRIL 40 MG TAB PO SCH (08:37)
[2017-06-30] MEDS: SPIRONOLACTONE 25 MG TAB PO SCH (08:37)
[2017-06-30] MEDS: ASPIRIN 81 MG ECTAB PO SCH (08:37)
[2017-06-30] MEDS: INSULIN ASPART 100 UNITS/ML 3 ML PEN SC SCH ×4 (08:44→21:00)
[2017-06-30] MEDS ORDERED: FLECAINIDE ACETATE 100 MG TAB PO ONE (10:30)
--- NOTE | 2017-06-30 10:39 | Cardiology Follow-Up ---
Subjective Date of Service: Jun 30, 2017. Pt evaluation today including: conversation w/ patient, physical exam, lab review, review of studies, review of inpatient medication list, conversation w/ attending History of Present Illness This is a very pleasant 57-year-old gentleman who has a history of ventricular tachycardia for which he has had an extensive evaluation and several ablation attempts. Evidently he was on amiodarone in the past which was stopped due to fatigue, he had electrophysiology study and RF ablation in [place] on 2014. I'm not sure exactly what was done at that time but he had recurrence shortly thereafter and one month later was in sustained ventricular tachycardia. He had a second VT ablation performed 06/09/2015 which evidently included sites at the left coronary cusp, left ventricular outflow tract, anterolateral basal LV and left pulmonary artery. Evidently there was suppression of his VT but he still had nonsustained VT. At that time his ejection fraction was noted to be 32% although in the setting of frequent ventricular ectopy. With continued ectopy post ablation he was started on flecainide which I believe was started at 50 mg twice a day and titrated to 100 mg twice a day but that was the highest dose. I believe he has also been on carvedilol at 12.5 mg twice a day. Coronary angiography has demonstrated no significant disease. A more recent left ventricular ejection fraction was 47%. He also has a history of atrial fibrillation, I don't have details regarding that, he does have a [employer] link loop recorder in place and that has evidently shown atrial fibrillation. Due to ineffectiveness of flecainide 100 mg twice a day he was hospitalized here about a week ago for initiation of sotalol. He was titrated sotalol 160 mg twice a day and discharged on that dose. He noticed a feeling of his heart racing (but no hemodynamic symptoms) and presented to his local hospital and was transferred here. Here he was observed to have continued very frequent and sustained episodes of a wide complex tachycardia. Once again he feels the fast heart rate but does not have lightheadedness, dizziness, or presyncope. He does not have chest discomfort or shortness of breath. With residual effects of sotalol and amiodarone probably still present on 2016 I did not want to start an antiarrhythmic. Intravenous metoprolol (2.5 mg IV twice) was quite effective and transiently suppressing his ventricular arrhythmia. I started him on 100 mg twice a day of metoprolol tartrate the evening of 06/28/2017. His VT was not as well suppressed on beta blockade orally as it was with IV, therefore I left him on the beta jeremias and start flecainide 100 mg twice a day on the morning of 06/29/2017. He is tolerating the medications well, he has had little in the way of palpitations (he is aware of the arrhythmia when he has it) and has no complaints today. Social History Smoking Status: Never Smoker History of Alcohol Use: Yes (12 pack of beer weekly) Review of Systems Respiratory: No cough, No wheezing, No shortness of breath, No dyspnea on exertion Cardiac: + see HPI, + palpitations, No chest pain, No orthopnea, No PND, No edema Medications Cardiovascular: Item Value Date Time Flecainide Acetate 150 mg 06/30/17 2100 (Tambocor Tab) Q12/PO Metoprolol 100 mg 06/30/17 2100 Succinate BID/PO (Toprol Xl Tab) Flecainide Acetate 50 mg 06/30/17 1030 (Tambocor Tab) NOW ONCE/PO Aspirin 81 mg 06/28/17 0900 (Ecotrin Tab) QAM/PO 06/30/17 0837 Atorvastatin 40 mg 06/28/17 0900 Calcium QAM/PO 06/30/17 0837 (Lipitor Tab) Lisinopril 40 mg 06/28/17 0900 (Zestril Tab) QAM/PO 06/30/17 0837 Potassium Chloride 20 meq 06/28/17 0900 (Klor-Con Tab) QAM/PO 06/30/17 0836 Spironolactone 25 mg 06/28/17 0900 (Aldactone Tab) QAM/PO 06/30/17 0837 Apixaban 5 mg 06/28/17 0900 (Eliquis Tab) BID/PO 06/30/17 0835 Objective Vital Signs Past 12 Hours Date Time Temp Pulse Resp B/P (MAP) Pulse Ox O2 Delivery O2 Flow Rate FiO2 06/30/17 07:34 36.4 57 19 127/79 (95) 99 Room Air 06/30/17 04:18 36.8 64 20 103/61 (75) 96 Room Air 06/30/17 04:00 96 Room Air 06/30/17 00:00 97 Room Air 06/29/17 23:57 36.7 73 19 107/68 (81) 97 Room Air Last Recorded Weight-Kilograms: 127.900 Physical Exam Constitutional: General Apperance: heathly-appearing Level of Distress: NAD Lungs: Respiratory effort: no dyspnea, good air movement Auscultation: breath sounds normal, no wheezing Cardiovascular: Heart Auscultation: RRR, no murmurs, no rubs, no gallops Peripheral Pulses: Bruits: none appreciated Extremities: no edema Data Laboratory Results: Last 24 Hours Test 06/29/17 11:10 06/29/17 16:03 06/29/17 20:04 06/30/17 06:49 Bedside Glucose 146 mg/dl 113 mg/dl 170 mg/dl 137 mg/dl EKG: Sinus rhythm, no evidence of flecainide toxicity this morning Telemetry reviewed: Per family sinus rhythm since starting flecainide on the morning of 06/29/2017, a brief episode of runs of ventricular tachycardia for several hours around 9:00 in the evening on 06/29/2017, predominantly sinus rhythm since. Assessment and Plan #1. Wide complex rhythm: I believe this is ventricular tachycardia and is probably consistent with his history of idiopathic ventricular tachycardia. He has had several ablation attempts in the feeling was after his last one that perhaps it is an epicardial focus. Flecainide 100 mg twice a day was not effective in controlling his atrial fibrillation and his ventricular arrhythmia , when switched to sotalol 160 mg twice a day it did not suppress his ventricular arrhythmia. He was given a load of amiodarone on arrival, but now we have discontinued both the amiodarone and the sotalol (his last dose of sotalol was evening of 06/27/2017). Intravenous beta blockade was helpful in suppressing the ventricular tachycardia, but on oral he has had predominantly ventricular tachycardia. We could go up on the beta jeremias, but I would prefer to continue the combination of flecainide and metoprolol. Although his rhythm seems well suppressed after his second dose of flecainide I am going to increase his flecainide to 150 mg twice a day. I would prefer to keep him overnight to make sure he does not develop toxicity on this dose, it may be preferable to discharge him on the 100 mg twice a day dose and see if that works clinically with the beta-blockade. I agree with switching to metoprolol succinate. #2. Atrial fibrillation: Although he has so much wide complex rhythm this visit is difficult to tell if he might have atrial fibrillation but I don't see any clear evidence of it. I would continue anti-coagulation. With his age and size I think he can be on higher doses of both flecainide and beta blockade than he was in the past. #3. Cardiomyopathy: Although he has a nonischemic cardiomyopathy some of it might be due to his ventricular arrhythmia, therefore suppression of his arrhythmia may be beneficial. Although I usually use carvedilol for cardiomyopathy is I think metoprolol is a better antiarrhythmic and may be sufficient for treatment of his cardiomyopathy. He is currently on metoprolol tartrate but it would be better to switch that to metoprolol succinate at the same daily dose. Thank you for allowing me to participate in his care.
--- NOTE | 2017-06-30 10:46 | PROGRESS NOTE ---
DATE: 06/30/2017 FOLLOWUP VISIT SUBJECTIVE: The patient is a 57-year-old male who has complex ventricular arrhythmias. He has been started on metoprolol and flecainide by Dr. Roberts and Dr. Roberts's help is much appreciated. He is to have titration of his metoprolol and flecainide today and if all goes well, we hope that he can be discharged tomorrow. OBJECTIVE: GENERAL: He is alert and oriented in no acute distress. VITAL SIGNS: Pulse is regular at 60 beats per minute. He is afebrile. Blood pressure 115/80. HEENT: He is normocephalic. Pupils are equal and reactive to light. Extraocular muscles are intact bilaterally. NECK: The neck veins are flat. Carotids have good upstrokes bilaterally without bruits. Thyroid is nonpalpable. RESPIRATORY: Breath sounds equal bilaterally and clear to auscultation. CARDIOVASCULAR: Heart has regular rhythm. Normal S1 and S2. No S3 or S4. No cardiac rubs or murmurs. GASTROINTESTINAL: Abdomen is soft and nontender without organomegaly. EXTREMITIES: Free of edema, digit clubbing, or cyanosis. NEUROLOGIC: Grossly intact. SKIN: Warm to touch. LYMPH NODES: Negative to palpation. IMPRESSION: 1. History of complex ventricular arrhythmias. 2. Paroxysmal atrial fibrillation. 3. Nonischemic cardiomyopathy. RECOMMENDATIONS: As outlined above, the patient will have his medications titrated today and if all goes well, he will be able to be discharged tomorrow.
--- NOTE | 2017-06-30 18:03 | Progress Note ---
Internal Med Progress Note Date of Service: Jun 30, 2017. Provider Documentation: SUBJECTIVE: resting comfortably denies chest pain or palpitations ambulated in hallway fine no nausea no complaints OBJECTIVE: Vital Signs-as noted below Exam: General-alert and oriented. Not in distress ENT-Normal hearing Neck-no neck masses Lungs-CTA b/l no wheezing or crackles Heart-S1 and S2 heard. Irregular rate and rhythm, no murmurs Abdomen-Soft Bowel sounds present no tenderness present no distension Extremities-no pedal edema no erythema Neuro-alert and awake moves extremities Lab data as noted below. ASSESSMENT & PLAN: This is a 57 year old male with a PMH of paroxysmal atrial fibrillation, paroxysmal ventricular tachycardia s/p two failed ablations, COPD, DM2, HLD, nonischemic cardiomyopathy and systolic CHF with EF ~ 45%, SIERRA on CPAP presents to the ED due to palpitations and rapid heart beat Paroxysmal A. Fib Paroxysmal Ventricular Tachycardia patient presents with tachycardia in the 130s-140s was just changed from Flecainide to Sotalol on 06/20 and discharged on 06/23 received Amiodarone bolus/drip for now continue Eliquis 5mg BID - patient was taking Xarelto, switched last week, though unsure if he actually made the switch at home; either way, we will continue Eliquis for now cardiology planning to restart flecainide at higher dose and Lopressor when amiodarone and sotalol is washed out of system also received iv magnesium today started on flecainide 100mg bid and Lopressor 100mg bid 06/29/17 Cardiology want to change Lopressor to Toprol xl 100mg bid and increase flecainide to 150mg bid and monitor today Nonischemic Cardiomyopathy Systolic CHF with EF around 45% holding Lasix for now (elevated BUN:creat ratio), restart in 1-2 days To continue Lisinopril and Aldactone stable DM2 holding oral agents insulin sliding scale 170/137/148/92 will monitor COPD takes Dulera, will use Advair while here Ventolin nebs as needed SIERRA on CPAP HLD continue Lipitor DVT ppx Eliquis FULL CODE DISPOSITION monitor in tele possible d/c in am Vital Signs: Date Time Temp Pulse Resp B/P (MAP) Pulse Ox O2 Delivery O2 Flow Rate FiO2 06/30/17 15:05 37.1 57 16 126/78 (94) 98 Room Air 06/30/17 12:00 Room Air 06/30/17 11:38 36.9 78 18 110/80 (90) 98 Room Air 06/30/17 08:00 Room Air 06/30/17 07:34 36.4 57 19 127/79 (95) 99 Room Air 06/30/17 04:18 36.8 64 20 103/61 (75) 96 Room Air 06/30/17 04:00 96 Room Air 06/30/17 00:00 97 Room Air 06/29/17 23:57 36.7 73 19 107/68 (81) 97 Room Air 06/29/17 20:00 96 Room Air 06/29/17 19:08 36.9 61 20 117/70 (86) 96 Room Air Lab Results: Results Past 24 Hours Test 06/29/17 20:04 06/30/17 06:49 06/30/17 11:19 06/30/17 16:36 Range/Units Bedside Glucose 170 137 148 92 70-99 mg/dl
[2017-06-30] MEDS: METOPROLOL SUCC 50MG EXT REL TAB PO SCH (21:40)
[2017-07-01 03:28] VITALS: BP 104/66; PULSE 63; TEMP 36.8; O2SAT 97
[2017-07-01 07:21] VITALS: BP 122/87; PULSE 65; TEMP 36.8; O2SAT 98
[2017-07-01 08:00] VITALS: O2SAT 95
[2017-07-01] MEDS: FLUTICASONE/SALMETEROL (ADVAIR) 500/50 INH 14 PUFF INH SCH (08:10)
[2017-07-01] MEDS: ASPIRIN 81 MG ECTAB PO SCH (08:11)
[2017-07-01] MEDS: ATORVASTATIN 40 MG TAB PO SCH (08:11)
[2017-07-01] MEDS: APIXABAN 2.5 MG TAB PO SCH (08:11)
[2017-07-01] MEDS: SPIRONOLACTONE 25 MG TAB PO SCH (08:12)
[2017-07-01] MEDS: METOPROLOL SUCC 50MG EXT REL TAB PO SCH (08:12)
[2017-07-01] MEDS: LISINOPRIL 40 MG TAB PO SCH (08:12)
[2017-07-01] MEDS: POTASSIUM CHLORIDE 20 MEQ TABCR PO SCH (08:13)
[2017-07-01] MEDS: FLECAINIDE ACETATE 100 MG TAB PO SCH (08:13)
[2017-07-01] MEDS: INSULIN ASPART 100 UNITS/ML 3 ML PEN SC SCH (08:20)
--- NOTE | 2017-07-01 09:38 | Cardiology Follow-Up ---
Subjective General Date of Service: Jul 01, 2017. Chief Complaint: follow up palpitations Pt evaluation today including: conversation w/ patient, physical exam History of Present Illness The patient is a 57 year old male seen in follow-up. Patient without complains. He denies any subjective palpitations and states he feels much improved compared to admission. Telemetry reveals sinus rhythm. His last episode of sustained ventricular tachycardia on telemetry was on 06/29/17. EKG performed this morning 07/01/17 at 7:58 AM revealed sinus rhythm at 64 bpm with left axis deviation, normal intervals. The NV interval was 174 ms, and the corrected QT interval was stable at 447 ms. Repeat chemistry panel and magnesium level has been requested and is currently pending. Allergies Coded Allergies: Shellfish (Verified Allergy, Severe, HIVES,SOB, 06/28/17) Social History Smoking Status: Never Smoker Hx Tobacco Use In Past Year?: No Hx Alcohol Use - Type And Amou: Yes (12 pack of beer weekly) Hx Substance Use - Type And Am: No Problem List Medical Problems: (1) Rapid atrial fibrillation Status: Acute (2) Ventricular tachycardia, non-sustained Status: Acute Physical Exam Vital Signs Last Vital Signs Documentation Date Time Temp Pulse Resp B/P (MAP) Pulse Ox O2 Delivery O2 Flow Rate FiO2 07/01/17 07:21 36.8 65 16 122/87 (99) 98 07/01/17 04:00 CPAP 06/28/17 02:27 21 Physical Exam Constitutional: General Apperance: heathly-appearing Level of Distress: NAD Psychiatric: Mental Status: active & alert Head: normocephalic Eyes: EOM: EOMI ENMT: normal ENT inspection, hearing grossly normal Neck: supple, no masses Lungs: Respiratory effort: no dyspnea, good air movement Auscultation: breath sounds normal, no wheezing Cardiovascular: Heart Auscultation: RRR, no murmurs, no rubs, no gallops Peripheral Pulses: Bruits: none appreciated Abdomen: Bowel Sounds: normal Inspection & Palpation: soft, no tenderness, guarding & rebound, no masses Musculoskeletal: normal strength (5/5 throughout) Extremities: no edema Neurologic: Cranial Nerves: grossly intact Sensation: grossly intact Assessment and Plan Assessment and Plan Impression: 57-year-old male 1. Idiopathic ventricular tachycardia 2. Paroxysmal atrial fibrillation 3. Nonischemic cardiomyopathy, most recent left ventricular ejection fraction reportedly 47%. Plan: The patient has received his third dose of flecainide 150 mg this a.m. There is been no recurrence of atrial fibrillation or what complex tachycardia noted on telemetry since 06/29/17. EKG is stable, with stable intervals, and no significant AV block, pauses, or bradycardia noted. Continue flecainide 150 mg by mouth twice a day, and metoprolol succinate 100 mg twice a day. Continue remaining cardiac medications including was 5 mg by mouth twice a day for stroke prophylaxis given paroxysmal atrial fibrillation, aspirin, atorvastatin, lisinopril, spironolactone, and potassium chloride. Await results of chemistry panel. If stable, plan on discharge on the above medications. Keep outpatient follow-up visit as already scheduled on 07/18/17 at [facility] with Dr. Han at 1 pm. Laboratory Results Last 24 Hours Test 06/30/17 11:19 06/30/17 16:36 06/30/17 20:26 07/01/17 06:50 Bedside Glucose 148 mg/dl 92 mg/dl 125 mg/dl 132 mg/dl Test 07/01/17 08:54
[2017-07-01 10:12] LABS: BUN/CREATININE RATIO 12.5 (10-20); CREATININE 0.98 mg/dl (0.60-1.40); MAGNESIUM 2.3 mg/dl (1.8-2.4); POTASSIUM 4.6 mmol/L (3.5-5.1)
--- NOTE | 2017-07-01 10:33 | Cardiology Progress Note ---
Cardiology Progress Note Date of Service Jul 01, 2017. Cardiology Progress Note Last Resulted 06/28/17 06:47 Last Resulted 07/01/17 08:54 Chem panel results are stable. Discussed with Dr Romero and Dr Roberts, will DC on meds as outlined in my prior note, with outpt follow up as planned with Dr Han.
[2017-07-01] MEDS ORDERED: FLEC150T PO (10:56)
[2017-07-01] MEDS ORDERED: METO100T44 PO (10:56)
--- NOTE | 2017-07-01 10:59 | Discharge Instructions ---
Discharge Instructions Date of Service Jul 01, 2017. Admission Reason for Admission: Rapid A-Fib,Ventricular Tachycardia,Non-Sustained Discharge Discharge Diagnosis / Problem: Idiopathic ventricular tachycardia, PAF Discharge Goals Goal(s): Decrease discomfort, Improve function Activity Recommendations Activity Limitations: resume your previous activity . Instructions / Follow-Up Instructions / Follow-Up FOLLOWUP WITH FAMILY DOCTOR .ARELY ON Jul AT 12:45PM FOLLOWUP WITH CARDIOLOGY SCHEDULED ON 07/18/17 at [facility] with Dr. Han at 1 pm. Current Hospital Diet Patient's current hospital diet: Diabetes Type 2 Diet, AHA Diet (Heart Healthy) Discharge Diet Recommended Diet: AHA Diet (Heart Healthy), Diabetes Type 2 Diet Pending Studies Studies pending at discharge: no Medical Emergencies . Who to Call and When: Medical Emergencies: If at any time you feel your situation is an emergency, please call 911 immediately. . Non-Emergent Contact Non-Emergency issues call your: Primary Care Provider ([facility]) . . "Provider Documentation" section prepared by Diogenes Romero. . VTE Core Measure Inpt VTE Proph given/why not?: Other Anticoagulation
[2017-07-01 11:27] VITALS: BP 135/87; PULSE 62; TEMP 36.5; O2SAT 97
[2017-07-01 11:43] VITALS: BP 135/87; PULSE 62; TEMP 36.5; O2SAT 97
--- NOTE | 2017-07-01 18:27 | Progress Note ---
Internal Med Progress Note Date of Service: Jul 01, 2017. Provider Documentation: SUBJECTIVE: resting comfortably no chest pain or sob afebrile ambulating ok ok for discharge OBJECTIVE: Vital Signs-as noted below Exam: General-alert and oriented. Not in distress ENT-Normal hearing Neck-no neck masses Lungs-CTA b/l no wheezing or crackles Heart-S1 and S2 heard. Irregular rate and rhythm, no murmurs Abdomen-Soft Bowel sounds present no tenderness present no distension Extremities-no pedal edema no erythema Neuro-alert and awake moves extremities Lab data as noted below. ASSESSMENT & PLAN: This is a 57 year old male with a PMH of paroxysmal atrial fibrillation, paroxysmal ventricular tachycardia s/p two failed ablations, COPD, DM2, HLD, nonischemic cardiomyopathy and systolic CHF with EF ~ 45%, SIERRA on CPAP presents to the ED due to palpitations and rapid heart beat Paroxysmal A. Fib Paroxysmal Ventricular Tachycardia patient presents with tachycardia in the 130s-140s was just changed from Flecainide to Sotalol on 06/20 and discharged on 06/23 received Amiodarone bolus/drip for now continue Eliquis 5mg BID - patient was taking Xarelto, switched last week, though unsure if he actually made the switch at home; either way, we will continue Eliquis for now cardiology planning to restart flecainide at higher dose and Lopressor when amiodarone and sotalol is washed out of system also received iv magnesium started on flecainide 100mg bid and Lopressor 100mg bid 06/29/17 Cardiology want to change Lopressor to Toprol xl 100mg bid and increase flecainide to 150mg bid and monitor . stable discharged on flecainide 150mg bid and Toprol xl 100mg bid f/u with cardiology Nonischemic Cardiomyopathy Systolic CHF with EF around 45% holding Lasix for now (elevated BUN:creat ratio), restart in 1-2 days To continue Lisinopril and Aldactone d/betty on home meds f/u with pcp and cardiology DM2 holding oral agents insulin sliding scale 125/132/231/140 d/c on home meds COPD takes Dulera, will use Advair while here Ventolin nebs as needed SIERRA on CPAP HLD continue Lipitor DVT ppx Eliquis discharged home to f/u with pcp and cardiology Vital Signs: Date Time Temp Pulse Resp B/P (MAP) Pulse Ox O2 Delivery O2 Flow Rate FiO2 07/01/17 11:43 36.5 62 16 97 Room Air 07/01/17 11:27 36.5 62 16 135/87 (103) 97 Room Air 07/01/17 08:00 95 Room Air 07/01/17 07:21 36.8 65 16 122/87 (99) 98 07/01/17 04:00 CPAP 07/01/17 03:28 36.8 63 16 104/66 (79) 97 CPAP 06/30/17 23:59 CPAP 06/30/17 23:21 36.5 64 22 104/70 (81) 98 BiPAP 06/30/17 20:00 Room Air 06/30/17 19:39 36.8 62 18 121/77 (92) 99 Room Air Lab Results: Results Past 24 Hours Test 06/30/17 20:26 07/01/17 06:50 07/01/17 08:54 07/01/17 11:16 Range/Units Bedside Glucose 125 132 140 70-99 mg/dl Sodium Level 136 136-145 mmol/L Potassium Level 4.6 3.5-5.1 mmol/L Chloride Level 103 98-107 mmol/L Carbon Dioxide Level 26 21-32 mmol/L Anion Gap 6.0 3-11 mmol/L Blood Urea Nitrogen 12 7-18 mg/dl Creatinine 0.98 0.60-1.40 mg/dl Est Creatinine Clear Calc Drug Dose 109.7 ml/min Estimated GFR () 99.5 Estimated GFR (Non- 85.8 BUN/Creatinine Ratio 12.5 10-20 Random Glucose 231 70-99 mg/dl Calcium Level 9.0 8.5-10.1 mg/dl Magnesium Level 2.3 1.8-2.4 mg/dl
--- NOTE | 2017-07-01 18:35 | Discharge Summary ---
Discharge Summary Date of Service Jul 01, 2017. Discharge Summary Admission Date: Jun 28, 2017 at 01:37 Discharge Date: Jul 01, 2017 Discharge Disposition: Home Principal Diagnosis: Paroxysmal A. Fib Paroxysmal Ventricular Tachycardia Secondary Diagnoses/Problems: (1) Afib Status: Chronic (2) COPD (chronic obstructive pulmonary disease) Status: Chronic (3) GERD (gastroesophageal reflux disease) Status: Chronic (4) Sleep apnea Status: Chronic Procedures: CXR: Mild stable cardiomegaly. Otherwise negative study. Consultations: CARDIOLOGY Medication Reconciliation New Medications: Flecainide Acetate (Flecainide Acetate) 150 Mg Tab 150 MG PO BID, #60 1 Refill Metoprolol Succ (Toprol Xl) (Toprol-Xl ) 100 Mg Tabcr 100 MG PO BID, #60 TAB 1 Refill Continued Medications: Albuterol Hfa (Ventolin Hfa) 200 Puffs/16319 Mcg Aers 2 PUFFS INH Q6H PRN for SOB/Wheezing, INHALER Albuterol Sulf (Albuterol Sulfate) 2.5 Mg/3 Ml Nebu 1 DOSE INH Q4H PRN for SOB/Wheezing Apixaban (Eliquis) 5 Mg Tab 5 MG PO BID, #60 TAB Aspirin (Aspirin 81) 81 Mg Tab 1 TAB PO QAM Atorvastatin (Lipitor) 40 Mg Tab 40 MG PO QAM, TAB Cholecalciferol (Vitamin D 1000 Unit) 1,000 Unit Cap 1000 INTER.UNIT PO QAM Furosemide (Lasix) 40 Mg Tab 40 MG PO QAM Lisinopril (Zestril) 40 Mg Tab 40 MG PO QAM, TAB Metformin Hcl (Glucophage) 500 Mg Tab 500 MG PO BID, TAB Mometasone Furoate-Formoterol (Dulera 200/5 Mcg) 1 Aer Aer 1 AER INH BID Potassium Ext Rel (Klor-Con) 20 Meq Tabcr 20 MEQ PO QAM Spironolactone (Aldactone) 25 Mg Tab 25 MG PO QAM, TAB Vardenafil Hcl (Levitra) 20 Mg Tab 20 MG PO DIRECTED, TAB Discontinued Medications: Ibuprofen (Ibuprofen) 800 Mg Tab 800 MG PO DAILY PRN for Pain Sotalol HCl (Sotalol HCl) 80 Mg Tab 160 MG PO BID, #60 Admission Information HPI (per Admitting provider): This is a 57 year old male with a PMH of paroxysmal atrial fibrillation, paroxysmal ventricular tachycardia s/p two failed ablations, COPD, DM2, HLD, nonischemic cardiomyopathy and systolic CHF with EF ~ 45%, SIERRA on CPAP presents to the ED due to palpitations and rapid heart beat. He was at [facility] from 06/20 to 06/23 due to the same thing. At that time, his medications were changed around from Flecainide, which he was on for his arrhythmias, to Sotalol. He was on a Sotalol loading dose and was discharged on 06/23. Stated that he did well over the weekend on 06/24 and 06/25, but on Tuesday 06/26, he started feeling his heart racing again and decided to come in to the hospital for further evaluation on Monday, 06/27. Denies shortness of breath/fevers/chills/nausea/ vomiting/diarrhea. Upon presentation, it was noted that patient was in a ventricular tachycardia. Dr. Kingston was made aware - recommended Amiodarone bolus and drip; which was started in the ED. Physical Exam (per Admitting): General Appearance: no apparent distress, + obese Head: normocephalic, atraumatic Eyes: normal inspection ENT: hearing grossly normal Neck: supple Respiratory/Chest: lungs clear, normal breath sounds, no respiratory distress, no accessory muscle use Cardiovascular: no murmur, + tachycardia, + irregularly irregular Abdomen/GI: non tender, soft Extremities/Musculoskelatal: normal inspection, no calf tenderness, normal capillary refill, no pedal edema, normal range of motion Neurologic/Psych: geriatric nurse II-XII nml as tested, no motor/sensory deficits, alert , normal mood/affect, oriented x 3 Skin: normal color Lymphatic: no adenopathy Hospital Course This is a 57 year old male with a PMH of paroxysmal atrial fibrillation, paroxysmal ventricular tachycardia s/p two failed ablations, COPD, DM2, HLD, nonischemic cardiomyopathy and systolic CHF with EF ~ 45%, SIERRA on CPAP presents to the ED due to palpitations and rapid heart beat Paroxysmal A. Fib Paroxysmal Ventricular Tachycardia patient presents with tachycardia in the 130s-140s was just changed from Flecainide to Sotalol on 06/20 and discharged on 06/23 received Amiodarone bolus/drip for now continue Eliquis 5mg BID - patient was taking Xarelto, switched last week, though unsure if he actually made the switch at home; either way, we will continue Eliquis for now cardiology planning to restart flecainide at higher dose and Lopressor when amiodarone and sotalol is washed out of system also received iv magnesium started on flecainide 100mg bid and Lopressor 100mg bid 06/29/17 Cardiology want to change Lopressor to Toprol xl 100mg bid and increase flecainide to 150mg bid and monitor . stable discharged on flecainide 150mg bid and Toprol xl 100mg bid f/u with cardiology Nonischemic Cardiomyopathy Systolic CHF with EF around 45% holding Lasix for now (elevated BUN:creat ratio), restart in 1-2 days To continue Lisinopril and Aldactone d/betty on home meds f/u with pcp and cardiology DM2 holding oral agents insulin sliding scale 125/132/231/140 d/c on home meds COPD takes Dulera, will use Advair while here Ventolin nebs as needed SIERRA on CPAP HLD continue Lipitor DVT ppx Eliquis discharged home to f/u with pcp and cardiology Total time spent on discharge = 35MINUTES This includes examination of the patient, discharge planning, medication reconciliation, and communication with other providers. Discharge Instructions Discharge Instructions Date of Service Jul 01, 2017. Admission Reason for Admission: Rapid A-Fib,Ventricular Tachycardia,Non-Sustained Discharge Discharge Diagnosis / Problem: Idiopathic ventricular tachycardia, PAF Discharge Goals Goal(s): Decrease discomfort, Improve function Activity Recommendations Activity Limitations: resume your previous activity . Instructions / Follow-Up Instructions / Follow-Up FOLLOWUP WITH FAMILY DOCTOR .PILGRIM ON Jul AT 12:45PM FOLLOWUP WITH CARDIOLOGY SCHEDULED ON 07/18/17 at [facility] with Dr. Han at 1 pm. Current Hospital Diet Patient's current hospital diet: Diabetes Type 2 Diet, AHA Diet (Heart Healthy) Discharge Diet Recommended Diet: AHA Diet (Heart Healthy), Diabetes Type 2 Diet Pending Studies Studies pending at discharge: no Medical Emergencies . Who to Call and When: Medical Emergencies: If at any time you feel your situation is an emergency, please call 911 immediately. . Non-Emergent Contact Non-Emergency issues call your: Primary Care Provider ([facility]) . . "Provider Documentation" section prepared by Diogenes Romero. . VTE Core Measure Inpt VTE Proph given/why not?: Other Anticoagulation
== END 2017-07-01 11:50 | disposition home or self-care (01) | DRG 309 ==
LOC: C.EDB 23:29 → C.2T 06-28 01:37 → ENRESERV 06-28 01:41
PROVIDERS: ADMIT Family Medicine; ATTEND Internal Medicine
DX: I48.0 Paroxysmal atrial fibrillation (principal); I50.22 Chronic systolic (congestive) heart failure; Z68.41 Body mass index [BMI] 40.0-44.9, adult; I47.2 Ventricular tachycardia; I42.9 Cardiomyopathy, unspecified; J44.9 Chronic obstructive pulmonary disease, unspecified; E11.9 Type 2 diabetes mellitus without complications; G47.33 Obstructive sleep apnea (adult) (pediatric); E78.5 Hyperlipidemia, unspecified; E66.9 Obesity, unspecified; Z79.899 Other long term (current) drug therapy; Z79.01 Long term (current) use of anticoagulants; Z79.82 Long term (current) use of aspirin; Z79.84 Long term (current) use of oral hypoglycemic drugs; Z98.890 Other specified postprocedural states; Z82.49 Family history of ischemic heart disease and other diseases of the circulatory system; Z83.3 Family history of diabetes mellitus

== ENCOUNTER 2017-10-06 13:29 | Emergency (ER) | payer OTHER ==
[~2017-10-06] VITALS: Ht 172.7 cm; Wt 125.8 kg
[~2017-10-06 13:29] MED LIST changes: -ALBUAER19 INH; -BTP80 PO; +FLEC150T PO; +METO100T44 PO; -MTR800 PO; +VNTHFA/IN INH
[2017-10-06 13:39] VITALS: TEMP 36.8; Ht 172.7 cm; Wt 125.8 kg
[2017-10-06] MEDS ORDERED: FAMOTIDINE 20 MG TAB PO ONE (14:15)
[2017-10-06 14:22] LABS: BASO % 0.1 %; BASO ABS # 0.01 K/uL (0-0.2); EOS % 2.6 %; EOS ABS # 0.18 K/uL (0-0.5); HEMATOCRIT 40.4 % (42-52); HEMOGLOBIN 14.3 g/dL (14.0-18.0); IG# 0.04 K/uL (0.00-0.02); LYMPH % 24.9 %; LYMPH ABS # 1.74 K/uL (1.2-3.4); MEAN CELL VOLUME 89.4 fL (80-100); MEAN CORPUSCULAR HEMOGLOBIN 31.6 pg (25-34); MEAN CORPUSCULAR HGB CONC 35.4 g/dl (32-36); MEAN PLATELET VOLUME 9.2 fL (7.4-10.4); MONO % 12.8 %; MONO ABS # 0.89 K/uL (0.11-0.59); NEUT ABS # 4.12 K/uL (1.4-6.5); PLATELET COUNT 221 K/uL (130-400); RED CELL DISTRIBUTION WIDTH CV 13.3 % (11.5-14.5); RED CELL DISTRIBUTION WIDTH SD 43.1 fL (36.4-46.3); WHITE BLOOD COUNT 6.98 K/uL (4.8-10.8)
--- NOTE | 2017-10-06 14:32 | EMERGENCY ROOM VISIT NOTE ---
History Report prepared by Venkatesh: Corey Nair Under the Supervision of: Dr. Ameya Gasca M.D. First contact with patient: 14:03 Chief Complaint: CHEST PAIN Stated Complaint: PAIN IN CHEST Nursing Triage Summary: for 3 weeks, pt has had occ fleeting cp also has some pressure. pt on fleccanide. was ablated several years ago. now has a loop recorder. pt states he has a lot of "gas" pt didn't call pcp or solderer torch. History of Present Illness The patient is a 57 year old male who presents to the Emergency Room with complaints of intermittent chest pain for the past three weeks. He notes that he had this pain three times, and it only lasts for two seconds at a time and describes it as a pressure. The patient states that the pain came after bending over, and he states that the pain radiates into his back. He notes that the last pain was two days ago. The patient also reports that he has been having a lot of belching and gas, and he states that he gets sweaty for the past couple of days. He denies any shortness of breath, nausea, vomiting, burning with urination, headache, and dizziness. The patient has a history of A-fib, and he currently has a loop recorder in place. He states that he is no longer on any blood thinners, though he is taking flecainide. He has a history of two ablations a couple years ago, and he states that he has had reflux before. He denies any history of heart attack and any abdominal surgeries. Source of History: patient Onset: 3 weeks ago Position: chest Quality: pressure Timing: intermittent Associated Symptoms: + back pain, No headache, No SOB, No nausea, No vomiting Note: Associated symptoms: belching and gas and sweaty Review of Systems See HPI for pertinent positives and negatives. A total of ten systems were reviewed and were otherwise negative. Past Medical & Surgical Medical Problems: (1) Afib (2) COPD (chronic obstructive pulmonary disease) (3) GERD (gastroesophageal reflux disease) (4) Sleep apnea (5) sotalol load Surgical Problems: (1) History of cardiac catheterization Family History Diabetes mellitus Heart disease Hypertension Social History Smoking Status: Never Smoker Alcohol Use: occasionally Marital Status: single Occupation Status: disabled Current/Historical Medications Scheduled Aspirin (Aspirin 81), 1 TAB PO QAM Atorvastatin (Lipitor), 40 MG PO QAM Cholecalciferol (Vitamin D 1000 Unit), 1,000 INTER.UNIT PO QAM Flecainide Acetate (Flecainide Acetate), 150 MG PO BID Furosemide (Lasix), 40 MG PO QAM Lisinopril (Zestril), 40 MG PO QAM Metformin Hcl (Glucophage), 500 MG PO BID Metoprolol Succ (Toprol Xl) (Toprol-Xl ), 100 MG PO BID Mometasone Furoate-Formoterol (Dulera 200/5 Mcg), 1 AER INH BID Potassium Ext Rel (Klor-Con), 20 MEQ PO QAM Spironolactone (Aldactone), 25 MG PO QAM Vardenafil Hcl (Levitra), 20 MG PO DIRECTED Scheduled PRN Albuterol Hfa (Ventolin Hfa), 2 PUFFS INH Q6H PRN for SOB/Wheezing Albuterol Sulf (Albuterol Sulfate), 1 DOSE INH Q4H PRN for SOB/Wheezing Allergies Coded Allergies: Shellfish (Verified Allergy, Severe, HIVES,SOB, 10/06/17) Physical Exam Vital Signs Date Time Temp Pulse Resp B/P (MAP) Pulse Ox O2 Delivery O2 Flow Rate FiO2 10/06/17 17:04 52 14 117/62 97 10/06/17 16:34 55 15 96 10/06/17 16:07 115/69 10/06/17 16:04 54 16 97 10/06/17 15:59 58 14 115/61 97 Room Air 10/06/17 15:29 53 17 97 10/06/17 14:59 53 16 97 10/06/17 14:41 98 Room Air 10/06/17 14:29 55 17 97 10/06/17 14:02 51 10/06/17 13:58 Room Air 10/06/17 13:39 36.8 55 18 171/68 98 Room Air Physical Exam GENERAL: Awake, alert, well-appearing, in no distress HENT: Normocephalic, atraumatic. Oropharynx unremarkable. Dry mucous membranes. EYES: Normal conjunctiva. Sclera non-icteric. NECK: Supple. No nuchal rigidity. FROM. No JVD. RESPIRATORY: Clear to auscultation. CARDIAC: Regular rate, normal rhythm. Extremities warm and well perfused. Pulses equal. ABDOMEN: Soft, non-distended. No tenderness to palpation. No rebound or guarding. No masses. RECTAL: Deferred. MUSCULOSKELETAL: Chest examination reveals no tenderness. The back is symmetrical on inspection without obvious abnormality. There is no CVA tenderness to palpation. No joint edema. LOWER EXTREMITIES: Calves are equal size bilaterally and non-tender. No edema. No discoloration. NEURO: Normal sensorium. No sensory or motor deficits noted. SKIN: No rash or jaundice noted. Medical Decision & Procedures ER Provider Diagnostic Interpretation: Radiology results as stated below per my review and radiologist interpretation: CHEST ONE VIEW PORTABLE CLINICAL HISTORY: 57 years-old Male presenting with CHEST PAIN. TECHNIQUE: Portable upright AP view of the chest was obtained. COMPARISON: 07/03/2017. FINDINGS: A bilingual medical assistant projects over the left heart border. Cardiac silhouette moderately enlarged. Lungs and pleural spaces clear. Orthopedic hardware noted in the right glenoid. Upper abdomen normal. IMPRESSION: 1. Cardiomegaly without evidence of acute cardiopulmonary disease. Electronically signed by: Rayo Araya M.D. 10/06/2017 2:36 PM Dictated Date/Time: 10/06/2017 2:35 PM Laboratory Results 10/06/17 14:00 Red Blood Count 4.52, Mean Corpuscular Volume 89.4, Mean Corpuscular Hemoglobin 31.6, Mean Corpuscular Hemoglobin Concent 35.4, Mean Platelet Volume 9.2, Neutrophils (%) (Auto) 59.0, Lymphocytes (%) (Auto) 24.9, Monocytes (%) (Auto) 12.8, Eosinophils (%) (Auto) 2.6, Basophils (%) (Auto) 0.1, Neutrophils # (Auto ) 4.12, Lymphocytes # (Auto) 1.74, Monocytes # (Auto) 0.89, Eosinophils # (Auto ) 0.18, Basophils # (Auto) 0.01 10/06/17 14:00 Test 10/06/17 14:00 White Blood Count 6.98 K/uL (4.8-10.8) Red Blood Count 4.52 M/uL (4.7-6.1) Hemoglobin 14.3 g/dL (14.0-18.0) Hematocrit 40.4 % (42-52) Mean Corpuscular Volume 89.4 fL (80-100) Mean Corpuscular Hemoglobin 31.6 pg (25-34) Mean Corpuscular Hemoglobin Concent 35.4 g/dl (32-36) Platelet Count 221 K/uL (130-400) Mean Platelet Volume 9.2 fL (7.4-10.4) Neutrophils (%) (Auto) 59.0 % Lymphocytes (%) (Auto) 24.9 % Monocytes (%) (Auto) 12.8 % Eosinophils (%) (Auto) 2.6 % Basophils (%) (Auto) 0.1 % Neutrophils # (Auto) 4.12 K/uL (1.4-6.5) Lymphocytes # (Auto) 1.74 K/uL (1.2-3.4) Monocytes # (Auto) 0.89 K/uL (0.11-0.59) Eosinophils # (Auto) 0.18 K/uL (0-0.5) Basophils # (Auto) 0.01 K/uL (0-0.2) RDW Standard Deviation 43.1 fL (36.4-46.3) RDW Coefficient of Variation 13.3 % (11.5-14.5) Immature Granulocyte % (Auto) 0.6 % Immature Granulocyte # (Auto) 0.04 K/uL (0.00-0.02) Anion Gap 9.0 mmol/L (3-11) Est Creatinine Clear Calc Drug Dose 97.8 ml/min Estimated GFR () 87.5 Estimated GFR (Non- 75.5 BUN/Creatinine Ratio 19.6 (10-20) Calcium Level 9.8 mg/dl (8.5-10.1) Magnesium Level 2.2 mg/dl (1.8-2.4) Total Bilirubin 0.4 mg/dl (0.2-1) Direct Bilirubin mg/dl (0-0.2) Aspartate Amino Transf (AST/SGOT) 36 U/L (15-37) Alanine Aminotransferase (ALT/SGPT) 51 U/L (12-78) Alkaline Phosphatase 94 U/L (45-117) Troponin I < 0.015 ng/ml (0-0.045) Pro-B-Type Natriuretic Peptide 188 pg/ml (0-900) Total Protein 8.2 gm/dl (6.4-8.2) Albumin 4.1 gm/dl (3.4-5.0) Lipase 166 U/L (73-393) Chemistry Specimen Hemolysis Laboratory results reviewed by me Medications Administered Medications (Trade) Dose Ordered Sig/Regine Route Start Time Stop Time Status Last Admin Dose Admin Famotidine (Pepcid Tab) 20 mg NOW ONCE PO 10/06/17 14:15 10/06/17 14:16 DC 10/06/17 14:47 20 MG ECG Per My Interpretation Indication: chest pain Rate (beats per minute): 53 Rhythm: sinus bradycardia Findings: no acute ischemic change, left axis deviation ED Course 1407: The patient was evaluated in room A12. A complete history and physical exam was performed. 1702: I reevaluated the patient. Discussed results and discharge instructions: he verbalized understanding and agreement. The patient is ready for discharge. Medical Decision I reviewed the patient's past medical history, medications, and the nursing notes as described above. Differential diagnosis: Etiologies such as cardiac ischemia, aortic dissection, pulmonary embolism, pneumonia, pneumothorax, musculoskeletal, infections, pericarditis, myocarditis , esophageal rupture, gastrointestinal, as well as others were entertained. The patient is a 57-year-old gentleman with a past medical history of ?h/o afib/ unclear cardiac arrhythmias not on anticoagulation but on flecainide who presents to emergency department with 3 isolated episodes of 3 second chest pain over the past few weeks that occurred with no particular inciting factor per hpi. On arrival the patient is well-appearing, no acute distress, afebrile stable vital signs. Labs unremarkable including WBC within normal limits. Troponin negative. EKG unremarkable. Chest x-ray negative. Loop recorder interrogated by Enecsystronic fiscal technician and no concerning events. Unclear etiology to the patient's pain however workup reassuring. Note the patient was given Pepcid and felt significant improvement, not realizing he had some underlying discomfort previously. Symptoms possibly related to reflux/ esophagitis. Patient will try Pepcid for the next couple of weeks and follow- up with his PCP. Findings and plan for follow-up reviewed with patient. Patient agreeable and d/c'd per discharge instructions. Medication Reconcilliation Current Medication List: was personally reviewed by me Blood Pressure Screening Patient's blood pressure: Elevated blood pressure Blood pressure disposition: Elevated BP felt to be situational Impression Primary Impression: Substernal precordial chest pain Scribe Attestation The scribe's documentation has been prepared under my direction and personally reviewed by me in its entirety. I confirm that the note above accurately reflects all work, treatment, procedures, and medical decision making performed by me. Departure Information Dispostion Home / Self-Care Referrals Lebron Carlos M.D. (PCP) Forms Call Back Authorization, HOME CARE DOCUMENTATION FORM, IMPORTANT VISIT INFORMATION Patient Instructions ED Chest Pain Atypical Unkn Cause, My [facility] Additional Instructions Please follow up with your primary care physician next week for re-evaluation. The cause of your symptoms is unclear at this time. However, your exam, EKG, chest xray, lab results, and interrogation of your loop recorder did not show signs of an emergent condition at this time. Continue your current medications as prescribed. Return to the emergency department for worsening symptoms as described in the accompanying instructions.
--- NOTE | 2017-10-06 14:38 | DIAGNOSTIC IMAGING REPORT ---
CHEST ONE VIEW PORTABLE CLINICAL HISTORY: 57 years-old Male presenting with CHEST PAIN. TECHNIQUE: Portable upright AP view of the chest was obtained. COMPARISON: 07/03/2017. FINDINGS: A quality engineer medical device projects over the left heart border. Cardiac silhouette moderately enlarged. Lungs and pleural spaces clear. Orthopedic hardware noted in the right glenoid. Upper abdomen normal. IMPRESSION: 1. Cardiomegaly without evidence of acute cardiopulmonary disease. Electronically signed by: Rayo Araya M.D. 10/06/2017 2:36 PM Dictated Date/Time: 10/06/2017 2:35 PM
[2017-10-06 14:41] VITALS: O2SAT 98
[2017-10-06 14:41] LABS: ALBUMIN 4.1 gm/dl (3.4-5.0); ALKALINE PHOSPHATASE 94 U/L (45-117); ALT/SGPT 51 U/L (12-78); AST/SGOT 36 U/L (15-37); BLOOD UREA NITROGEN 21 mg/dl (7-18); CALCIUM 9.8 mg/dl (8.5-10.1); CARBON DIOXIDE 23 mmol/L (21-32); CREATININE 1.09 mg/dl (0.60-1.40); GLUCOSE 135 mg/dl (70-99); LIPASE 166 U/L (73-393); POTASSIUM 4.4 mmol/L (3.5-5.1); SODIUM 133 mmol/L (136-145); TOTAL PROTEIN 8.2 gm/dl (6.4-8.2)
[2017-10-06 17:04] VITALS: BP 117/62; PULSE 52; O2SAT 97
== END 2017-10-06 17:31 | disposition home or self-care (01) ==
LOC: C.EDB 13:30 → C.EDA 17:31
DX: R07.2 Precordial pain (principal); I48.91 Unspecified atrial fibrillation; J44.9 Chronic obstructive pulmonary disease, unspecified; K21.9 Gastro-esophageal reflux disease without esophagitis; G47.30 Sleep apnea, unspecified; Z83.3 Family history of diabetes mellitus; Z82.49 Family history of ischemic heart disease and other diseases of the circulatory system; Z79.82 Long term (current) use of aspirin; Z79.899 Other long term (current) drug therapy; Z91.013 Allergy to seafood